=== PATIENT | male | born 1995 | race Caucasian/White ===

== ENCOUNTER 2019-08-12 17:43 | Emergency (ER) | payer SELFPAY ==
[2019-08-12 17:53] VITALS: BP 147/71; PULSE 70; RESP 16; TEMP 37.1; O2SAT 100
--- NOTE | 2019-08-12 18:09 | ED.URI ---
HPI - URI/Sore Throat General Chief Complaint: Upper Respiratory Infection Stated Complaint: URI/SOB Time Seen by Provider: 08/12/19 18:09 Source: patient and RN notes reviewed History of Present Illness HPI Narrative: Patient is a 23-year-old male that presents the urgent care with complaints of nasal congestion, sinus pressure. Patient states the symptoms started 3 days ago with a sore throat and a dry cough which of both since subsided. Patient states he does have a history of asthma. Patient does appear to have anxiety and does admit to past medical history of anxiety. Patient states that he is hypochondriac . Patient states that his job sent him today due to complaints of shortness of breath. Patient denies any shortness of breath at this time and denies any wheezing. Patient has been using Zyrtec and states that he gets typical spring allergies every year. No other acute complaints. No acute distress noted. Patient read the plan of care. Related Data Home Medications Medication Instructions Recorded Confirmed No Home Medications 08/12/19 08/12/19 Allergies Allergy/AdvReac Type Severity Reaction Status Date / Time buspirone Allergy Unknown Seizure Verified 08/12/19 18:05 Review of Systems Review of Systems: Narrative: CONSTITUTIONAL: Denies fever, chills, or sweats. EYES: Denies visual changes, redness, or discharge. ENT: Reports of nasal congestion CARDIOVASCULAR: Denies chest pain, palpitations, or edema. RESPIRATORY: Denies dyspnea or cough currently GASTROINTESTINAL: Denies abdominal pain, nausea, vomiting, or diarrhea. GENITOURINARY: Denies dysuria or hematuria. SKIN: Denies rash or itching. MUSCULOSKELETAL: Denies back pain, joint pain, or myalgia. NEUROLOGIC: Denies headache, numbness, or weakness. PSYCHIATRIC: Reports of history of anxiety All other systems reviewed are negative, except as documented in HPI. PMFSH Social History Social History Gender identity (if verbalized by the patient): Male Comments At the time of my signature, I reviewed and agree with the nursing past medical, surgical, social, and family history. There is no relevant family history pertinent to the patient complaint. Exam Narrative: Exam Narrative: GENERAL: This is a well-nourished, well-developed patient, in no apparent distress. HEAD: normocephalic, atraumatic. EYES: PERRL. Sclera clear/white. Vision is grossly intact. EARS: External ears normal, auditory canals clear and without drainage, TMs normal without perforation. Hearing grossly intact. NOSE: External nose normal with no obvious nasal discharge, nares without redness, no rhinorrhea. THROAT: Mucous membranes moist, mild erythema noted posterior oropharynx with mild postnasal drainage NECK: Neck supple, non-tender without lymphadenopathy CARDIOVASCULAR: Regular rate and rhythm without murmurs, gallops, or rubs. RESPIRATORY: Clear to auscultation. Breath sounds equal bilaterally. No wheezes, rales, or rhonchi. SKIN: warm, intact with no suspicious lesions or rash, good texture and turgor. NEURO: awake, alert, and oriented to person, place and time. There were no obvious focal neurologic abnormalities. EXTREMITIES: No clubbing, cyanosis, or edema. Course Vital Signs Vital signs: Vital Signs Temperature 98.8 F 08/12/19 17:53 Pulse Rate 70 08/12/19 17:53 Respiratory Rate 16 08/12/19 17:53 Blood Pressure 147/71 H 08/12/19 17:53 Pulse Oximetry 100 08/12/19 17:53 Temperature 98.8 F 08/12/19 17:53 Pulse Rate 70 08/12/19 17:53 Respiratory Rate 16 08/12/19 17:53 Blood Pressure 147/71 H 08/12/19 17:53 Pulse Oximetry 100 08/12/19 17:53 Reviewed?patient is informed that they may have pre-hypertension or hypertension based on a blood pressure reading in the department. I recommend the patient call the primary care provider listed on their discharge instructions or a physician of their choice this week to arrange follow-up for further e
== END 2019-08-12 18:22 | disposition home or self-care (01) ==
PROVIDERS: Emergency Provider Nurse Practitioner Family
DX: J31.0 Chronic rhinitis (principal); J32.9 Chronic sinusitis, unspecified; J45.909 Unspecified asthma, uncomplicated
CPT/HCPCS: 99211; G0463

== ENCOUNTER 2019-09-09 05:46 | Emergency (ER) | payer SELFPAY ==
--- NOTE | ~2019-09-09 | XR_ITS ---
EXAMINATION: XR chest 1V portable DATE: 09/09/2019 06:25 INDICATION: Shortness of breath. TECHNIQUE: A single frontal view of the chest was obtained. COMPARISON: Chest single view 04/30/2013 FINDINGS: The chest demonstrates clear lungs without pneumonia, pleural effusion, or pneumothorax. Th e heart size is normal. IMPRESSION: 1. No acute cardiopulmonary disease. Reviewed, dictated and finalized at location A.
[2019-09-09 05:49] VITALS: BP 129/80; PULSE 86; RESP 27; TEMP 36.4; O2SAT 100
--- NOTE | 2019-09-09 06:13 | ED.ASTHMA ---
HPI - Asthma General Chief Complaint: Asthma Stated Complaint: asthma Time Seen by Provider: 09/09/19 06:02 Source: patient Mode of arrival: ambulatory Limitations: no limitations History of Present Illness HPI Narrative: Patient is a 23 yo M who presents to the ED for evaluation of shortness of breath. Patient reports a 3-day history of worsening shortness of breath, worse with exertion, states this is very consistent with his history of asthma. Patient has been written without a physician, was recently seen in urgent care couple weeks ago and diagnosed with sinusitis. He denies any fever, productive cough, does report wheezing. No current access to steroids, patient does have a metered-dose inhaler at home that he has been using with most activities. Patient states his shortness of breath worsened this morning thus he sought care at the emergency department. He reports audible wheezing. He denies chest pain abdominal pain, nausea, vomiting. Related Data Allergies Allergy/AdvReac Type Severity Reaction Status Date / Time buspirone Allergy Unknown Seizure Verified 08/12/19 18:05 Review of Systems Review of Systems: Narrative: CONSTITUTIONAL: Denies fever, chills, or sweats. ENT: Denies rhinorrhea, congestion, sore throat, or otalgia. CARDIOVASCULAR: Denies chest pain, palpitations, or edema. RESPIRATORY: Reports cough and shortness of breath GASTROINTESTINAL: Denies abdominal pain, nausea, vomiting, or diarrhea. GENITOURINARY: Denies dysuria or hematuria. SKIN: Denies rash or itching. MUSCULOSKELETAL: Denies back pain NEUROLOGIC: Denies headache PMFSH Past Medical History Medical History (Updated 09/09/19 @ 07:21 by Melissa Parham MD) Asthma Surgical History Surgical History (Updated 09/09/19 @ 06:20 by Melissa Parham MD) No significant past surgical history Social History Social History (Updated 09/09/19 @ 06:21 by Melissa Parham MD) Smoking status: Current every day smoker Tobacco type: e-cigarettes Alcohol intake: current Drinks per week: 3 Substance use: never Gender identity (if verbalized by the patient): Male Exam Narrative: Exam Narrative: GENERAL: Awake, alert, conversant HEAD: Normocephalic, atraumatic. EYES: PERRLA and EOMI. ENT: Nares clear, no rhinorrhea or epistaxis. Mucous membranes moist. NECK: Supple. CHEST: Moderate respiratory distress, tachypneic, increased work of breathing, no hypoxemia, tachypneic, audible wheezing HEART: Regular rate, sinus rhythm ABDOMEN:Non distended, non tender EXTREMITIES: Normal range of motion. No edema. SKIN: Warm, dry, no rash. NEURO:No focal deficits. Alert and oriented x3 Course Vital Signs Vital signs: Vital Signs Temperature 36.4 C L 09/09/19 05:49 Pulse Rate 86 09/09/19 05:49 Respiratory Rate 27 H 09/09/19 05:49 Blood Pressure 129/80 09/09/19 05:49 Pulse Oximetry 100 09/09/19 05:49 Temperature 36.4 C L 09/09/19 05:49 Pulse Rate 76 09/09/19 07:37 Respiratory Rate 18 09/09/19 07:37 Blood Pressure 118/76 09/09/19 07:37 Pulse Oximetry 99 09/09/19 07:37 MDM - Asthma MDM Narrative Medical decision making narrative: Patient presented for evaluation of shortness of breath with history of asthma. Patient has not had adequate access to his medications due to difficulty finding a primary care provider at time of coronavirus pandemic. At the time of initial assessment, ABCs are intact, vital signs are notable for tachypnea, no tachycardia, no hypoxemia. Laboratory results reassuring. No electrolyte derangement. Chest x-ray without acute cardiopulmonary abnormality. No covered type symptoms with history. Patient was reassessed and improved. I would classify this as a mild to moderate asthma exacerbation. Patient will be discharged home with steroids, inhaler, also given PCP follow-up. He was advised to return should his symptoms recur or worsen. Differential Diagnosis Differential diagnosis:
[2019-09-09] MEDS: MAGNESIUM SULF 2 GM/WATER 50ML 2 GM/50 ML BAG IVPB (06:22)
[2019-09-09] MEDS: SODIUM CHLORIDE 0.9% IV 1,000 ML 999 ML IV CONT (06:22)
[2019-09-09] MEDS: ALBUTEROL SULFATE NEB 2.5 MG/0.5 ML INH 5 MG INHALATION (06:27)
[2019-09-09] MEDS: IPRATROPIUM BR 0.02% INH SOLN 0.5 MG/2.5 ML VIAL 1 MG INHALATION (06:27)
[2019-09-09 06:28] VITALS: PULSE 71; RESP 20
[2019-09-09 06:39] LABS: Basophils Absolute Auto 0.1 K/mm3 (0.0-0.1); Basophils Percent Auto 0.6 % (0.2-1.2); Eosinophils Absolute Auto 0.5 K/mm3 (0-0.3); Eosinophils Percent Auto 5.3 % (0-4.4); Hematocrit 42.8 % (42.0-52.0); Hemoglobin 14.4 g/dL (14.0-18.0); Immature Granulocyte Absolute 0.03 K/mm3 (0.00-0.031); Immature Granulocyte Percent A 0.3 % (0-0.5); Lymphocytes Absolute Auto 3.38 K/mm3 (0.9-3.2); Lymphocytes Percent Auto 38.9 % (18.3-44.2); Mean Corpuscular HGB Conc 33.6 g/dl (32-36); Mean Corpuscular Hemoglobin 29.9 pg (26-34); Mean Platelet Volume 10.2 fl (7.4-10.4); Monocytes Absolute Auto 0.9 K/mm3 (0.1-0.6); Monocytes Percent Auto 9.8 % (2.6-8.5); Neutrophils Absolute Auto 3.9 K/mm3 (1.3-6.7); Neutrophils Percent Auto 45.1 % (45.5-73.1); Platelet Count Result 252 k/mm3 (150-375); Red Blood Count 4.81 M/mm3 (4.6-6.20); Red Cell Distribution Width 12.3 % (11.5-14.5); White Blood Count 8.7 K/mm3 (4.5-10.0)
[2019-09-09 06:53] LABS: Blood Urea Nitrogen 19 mg/dL (9-20); Calcium 8.9 mg/dL (8.4-10.2); Carbon Dioxide 23 mmol/L (22-30); Chloride 109 mmol/L (98-107); Estimated CRCL calculation 97 ml/min; Estimated Glomerular Filt Rate > 60; Glucose 93 mg/dL (75-110); Potassium 4.1 mmol/L (3.4-5.0); Sodium 140 mmol/L (137-145)
[2019-09-09 07:37] VITALS: BP 118/76; PULSE 76; RESP 18; O2SAT 99
--- NOTE | 2019-09-09 07:39 | PC.NURSE ---
Report received from JUANCHO Zuniga.
== END 2019-09-09 07:50 | disposition home or self-care (01) ==
PROVIDERS: Emergency Provider Emergency Medicine
DX: J45.901 Unspecified asthma with (acute) exacerbation (principal); F17.290 Nicotine dependence, other tobacco product, uncomplicated
CPT/HCPCS: 36415; 71045; 80048; 85025; 94640; 96365; 99284; J3475; J7030

== ENCOUNTER 2019-11-28 14:38 | Emergency (ER) | payer SELFPAY ==
--- NOTE | ~2019-11-28 | CT_ITS ---
EXAMINATION: CT brain wo con INDICATION: Transient alteration of awareness COMPARISON: 02/28/2015 TECHNIQUE: Standard unenhanced head CT. The dose-length product (DLP) was 605.33 mGy-cm. The mA was a djusted according to patient size. Iterative reconstruction technique was employed. FINDINGS: There is no intracranial hemorrhage, acute infarction, or abnormal mass lesion. The ventric les are normal. There is no abnormal mass effect or midline shift. The flores-white matter differentiat ion is normal. The basal cisterns are patent. The orbits are normal. The paranasal sinuses, mastoids and calvarium are normal. IMPRESSION: 1. No acute intracranial abnormality. Reviewed, dictated and finalized at location A.
--- NOTE | 2019-11-28 14:44 | ECG_ITS ---
Measurements Intervals [place] Rate: 114 P: 76 PA: 167 QRS: 76 QRSD: 88 T: 26 QT: 300 QTc: 414 Interpretive Statements SINUS TACHYCARDIA MINIMAL Q WAVES- INF/LAT LEADS NONSPECIFIC T-WAVE ABNORMALITY- INFERIOR LEADS ABNORMAL ECG Electronically Signed On 11-28-2019 15:12:04 CDT by Mathew Sinclair D.O.
[2019-11-28 14:45] VITALS: BP 127/74; PULSE 109; RESP 21; TEMP 37.7; O2SAT 96
[2019-11-28 15:01] LABS: Basophils Percent Auto 0.3 % (0.2-1.2); Eosinophils Absolute Auto 0.1 K/mm3 (0-0.3); Eosinophils Percent Auto 0.5 % (0-4.4); Hematocrit 46.3 % (42.0-52.0); Hemoglobin 15.6 g/dL (14.0-18.0); Immature Granulocyte Absolute 0.07 K/mm3 (0.00-0.031); Immature Granulocyte Percent A 0.5 % (0-0.5); Lymphocytes Absolute Auto 3.52 K/mm3 (0.9-3.2); Lymphocytes Percent Auto 27.5 % (18.3-44.2); Mean Corpuscular HGB Conc 33.7 g/dl (32-36); Mean Corpuscular Hemoglobin 30.1 pg (26-34); Mean Corpuscular Volume 89.4 fl (80-100); Mean Platelet Volume 10.1 fl (7.4-10.4); Monocytes Absolute Auto 1.1 K/mm3 (0.1-0.6); Monocytes Percent Auto 8.9 % (2.6-8.5); Neutrophils Percent Auto 62.3 % (45.5-73.1); Platelet Count Result 331 k/mm3 (150-375); Red Blood Count 5.18 M/mm3 (4.6-6.20); Red Cell Distribution Width 12.2 % (11.5-14.5); White Blood Count 12.8 K/mm3 (4.5-10.0)
[2019-11-28 15:28] LABS: Add Urine Microscopic? YES; Appearance Urine Clear (Clear); Bacteria Urine Trace /hpf; Bilirubin Urine Negative (Negative); Blood Urine 2+ (Negative); Color Urine Yellow (Yellow); Glucose Urine UA Negative (Negative); Ketones Urine Trace mg/dL (Negative); Leukocyte Esterase Ur Negative LEU/UL (Negative); Mucus Urine Heavy /lpf; Nitrate Urine Negative (Negative); Protein Urine 2+ mg/dL (Negative); Specific Grav Ur 1.018 (1.001-1.035); Urobilinogen Urine Negative mg/dL (<2.0); WBC Urine 0-3 /hpf
[2019-11-28 15:37] LABS: Alanine Aminotransferase 31 U/L (4-50); Albumin Level 5.3 g/dL (3.5-5.1); Alkaline Phosphatase 46 U/L (38-126); Aspartate Amino Transferase 40 U/L (17-59); Bilirubin,Total 0.8 mg/dL (0.2-1.3); Blood Urea Nitrogen 10 mg/dL (9-20); Carbon Dioxide 13 mmol/L (22-30); Chloride 104 mmol/L (98-107); Estimated CRCL calculation 71 ml/min; Estimated Glomerular Filt Rate > 60; Glucose 101 mg/dL (75-110); Potassium 3.8 mmol/L (3.4-5.0); Sodium 143 mmol/L (137-145)
[2019-11-28 15:42] LABS: Amphetamine Screen Urine Negative (Negative); Barbiturate Screen Urine Negative (Negative); Benzodiazepines Screen Urine Positive (Negative); Cannabinoid Screen Urine Positive (Negative); Cocaine Screen Urine Negative (Negative); Methadone Screen Urine Negative (Negative); Opiate Screen Urine Negative (Negative); Phencyclidine Screen Urine Negative (Negative)
[2019-11-28 15:50] VITALS: BP 106/61; PULSE 79; RESP 17; O2SAT 96
[2019-11-28] MEDS: SODIUM CHLORIDE 0.9% IV 1,000 ML 999 ML IV CONT (15:56)
--- NOTE | 2019-11-28 16:08 | ED.SEIZURE ---
HPI - Seizure General Chief Complaint: Seizure Stated Complaint: SEIZURE Time Seen by Provider: 11/28/19 15:43 Source: patient and family Mode of arrival: EMS Limitations: other (patient does not remember incident) History of Present Illness HPI Narrative: This is a 23-year-old male that presents the emergency department via EMS for seizure-like activity today. Reports he had binged on Xanax last week. Reports he stopped taking it abruptly on Thursday. Reports today he started having a lot of vomiting. Also reports sweating. Reports he remembers feeling a little lightheaded and then next remembers being in the ambulance. Per mother who was at work with him, he was on the floor and had tonic-clonic movements. Reports he was confused following incident. Patient now alert and oriented. Does not have any complaints. Related Data Allergies Allergy/AdvReac Type Severity Reaction Status Date / Time buspirone Allergy Unknown Seizure Verified 09/12/19 12:57 Review of Systems Review of Systems: Narrative: CONSTITUTIONAL: Denies fever EYES: Denies visual changes CARDIOVASCULAR: Denies chest pain RESPIRATORY: Denies dyspnea. GASTROINTESTINAL: Reports nausea, vomiting NEUROLOGIC: Denies headache, numbness, or weakness. All systems reviewed & are unremarkable except as noted in HPI and below PMFSH Past Medical History Medical History (Updated 11/28/19 @ 18:35 by Ene Garcia PA-C) Asthma Surgical History Surgical History (Updated 09/12/19 @ 13:03 by Miryam Strange) No pertinent past surgical history No significant past surgical history Social History Social History Smoking status: Current every day smoker Tobacco type: e-cigarettes/vaping Alcohol intake: current Drinks per week: 3 Substance use: current Substance use type: marijuana Gender identity (if verbalized by the patient): Male Exam Narrative: Exam Narrative: GENERAL: Well-appearing, well-nourished, and in no acute distress. HEAD: Normocephalic, atraumatic. EYES: PERRLA and EOMI. ENT: Nares clear, no rhinorrhea or epistaxis. Mucous membranes moist. Oropharynx without tonsillar hypertrophy exudate or other lesions. Bilateral TMs pearly flores non-bulging NECK: Supple. No adenopathy or masses. CHEST: Clear to auscultation. No respiratory distress. No wheezes rales or rhonchi HEART: Regular rate and rhythm. No murmur heard. Normal peripheral pulses. ABDOMEN: Soft, nontender, nondistended, normal active bowel sounds. EXTREMITIES: Normal range of motion. No edema. Strength equal in bilateral upper and lower extremities (5/5). SKIN: Warm, dry, no rash. NEURO: No focal deficits. Alert and oriented x3. Cranial nerves II through XII grossly intact. Normal [id number] PSYCH: Normal mood and affect Course Vital Signs Vital signs: Vital Signs Temperature 99.8 F H 11/28/19 14:45 Pulse Rate 109 H 11/28/19 14:45 Respiratory Rate 21 H 11/28/19 14:45 Blood Pressure 127/74 11/28/19 14:45 Pulse Oximetry 96 11/28/19 14:45 Temperature 99.8 F H 11/28/19 14:45 Pulse Rate 68 11/28/19 18:15 Respiratory Rate 12 11/28/19 18:15 Blood Pressure 111/64 11/28/19 18:15 Pulse Oximetry 98 11/28/19 18:15 MDM - Seizure MDM Narrative Medical decision making narrative: Patient presents the emergency department after seizure activity at work. Reports he had been binging on Xanax last week. Reports he abruptly stopped on Thursday. This morning he started have a lot of vomiting and then had a seizure at work. Presented via EMS. Patient neurologically intact on arrival. Mildly tachycardic, this improved with IV fluids. CBC with mild leukocytosis to 12.8. Metabolic panel with evidence of possible mild JOHNNA. Patient was hydrated in the ED. UA without evidence of infection. Urine drug screen positive for benzodiazepines and cannabinoids. CT scan of the brain is without acute findings
[2019-11-28 17:16] VITALS: PULSE 75; RESP 19; O2SAT 98
[2019-11-28 18:03] VITALS: PULSE 67
[2019-11-28 18:15] VITALS: BP 111/64; PULSE 68; RESP 12; O2SAT 98
[2019-11-28 18:45] VITALS: BP 110/76; PULSE 75; RESP 21; O2SAT 97
== END 2019-11-28 18:47 | disposition left against medical advice (07) ==
PROVIDERS: Emergency Provider Emergency Medicine; PCP Family Medicine
DX: F13.239 Sedative, hypnotic or anxiolytic dependence with withdrawal, unspecified (principal); R00.0 Tachycardia, unspecified; R94.31 Abnormal electrocardiogram [ECG] [EKG]; F17.290 Nicotine dependence, other tobacco product, uncomplicated
CPT/HCPCS: 36415; 70450; 80053; 80307; 81001; 85025; 93005; 99284; J2060; J7030

== ENCOUNTER 2019-12-05 10:28 | Emergency (ER) | payer SELFPAY ==
[2019-12-05 10:45] VITALS: BP 136/88; PULSE 78; RESP 18; TEMP 36.3; O2SAT 99
--- NOTE | 2019-12-05 11:17 | ED.ANXIETY ---
HPI - Anxiety General Chief Complaint: Anxiety <ESTELA Belle Last Filed: 12/05/19 11:21> Stated Complaint: SEIZURE LAST WEEK, DON'T FEEL RIGHT <ESTELA Belle Last Filed: 12/05/19 11:21> Time Seen by Provider: 12/05/19 10:59 <ESTELA Belle Last Filed: 12/05/19 11:21> Source: patient and old records reviewed <ESTELA Belle Last Filed: 12/05/19 11:21> Mode of arrival: ambulatory <ESTELA Belle Last Filed: 12/05/19 11:21> Limitations: no limitations <ESTELA Belle Last Filed: 12/05/19 11:21> History of Present Illness HPI narrative: Patient is a 23-year-old male who presents to emergency department notes that he had seizure activity 7 days ago after he had been abusing benzodiazepines and what he has been taking for his anxiety patient on arrival to emergency department notes that today while at work he was in a hot environment began to feel agitated and anxious patient notes he has not had any benzo diazepam since Thursday when he took a quarter of a milligram. During the course of the week patient notes he has been taking 1/4 mg 3 times daily to wean himself off. Patient denies any new seizures injury trauma fever chills illness and on arrival presents with normal gait no distress <ESTELA Belle Last Filed: 12/05/19 11:21> Related Data Home Medications: Home Medications Medication Instructions Recorded Confirmed albuterol sulfate INHALATION 12/05/19 budesonide-formoterol [Symbicort] 2 puff INHALATION Q12H 12/05/19 12/05/19 <ESTELA Belle Last Filed: 12/05/19 11:21> Allergies/Adverse Reactions: Allergies Allergy/AdvReac Type Severity Reaction Status Date / Time buspirone Allergy Seizure Verified 12/05/19 10:52 <ESTELA Belle Last Filed: 12/05/19 11:21> Review of Systems Review of Systems: All systems reviewed & are unremarkable except as noted in HPI and below <ESTELA Belle Last Filed: 12/05/19 11:21> [facility] Past Medical History Medical History: Medical History (Updated 12/05/19 @ 11:21 by Bob Franco PA-C) Anxiety Patient denies significant medical history <ESTELA Belle Last Filed: 12/05/19 11:21> Social History Social History: Social History Smoking status: Never smoker Gender identity (if verbalized by the patient): Male <Bob Franco PA-C - Last Filed: 12/05/19 11:21> Exam Narrative: Exam Narrative: GENERAL: Well-appearing, well-nourished, and in no acute distress. HEAD: Normocephalic, atraumatic. EYES: PERRLA and EOMI. ENT: Nares clear, no rhinorrhea or epistaxis. Mucous membranes moist. Oropharynx without tonsillar hypertrophy exudate or other lesions. CHEST: Clear to auscultation. No respiratory distress. No wheezes rales or rhonchi HEART: Regular rate and rhythm. No murmur heard. EXTREMITIES: Normal range of motion. No edema. SKIN: Warm, dry, no rash. NEURO: No focal deficits. Alert and oriented x3. Cranial nerves II through XII grossly intact. Normal speech and gait PSYCH: Normal mood and affect. <Bob Franco PA-C - Last Filed: 12/05/19 11:21> Course Course Emergency Course: Patient in the room in no distress advised to follow with primary care afebrile nontoxic-appearing <Bob Franco PA-C - Last Filed: 12/05/19 11:21> Vital Signs Vital signs: Vital Signs Temperature 97.4 F L 12/05/19 10:45 Pulse Rate 78 12/05/19 10:45 Respiratory Rate 18 12/05/19 10:45 Blood Pressure 136/88 12/05/19 10:45 Pulse Oximetry 99 12/05/19 10:45 Temperature 97.4 F L 12/05/19 10:45 Pulse Rate 78 12/05/19 10:45 Respiratory Rate 18 12/05/19 10:45 Blood Pressure 136/88 12/05/19 10:45 Pulse Oximetry 99 12/05/19 10:45 <Bob Franco PA-C - Last Filed: 12/05/19 11:21> Vital Signs
== END 2019-12-05 12:25 | disposition home or self-care (01) ==
LOC: ANHED 11:24
PROVIDERS: Emergency Provider Emergency Medicine
DX: F41.9 Anxiety disorder, unspecified (principal)
CPT/HCPCS: 99281

== ENCOUNTER 2020-01-29 17:44 | Emergency (ER) | payer SELFPAY ==
--- NOTE | 2020-01-29 17:45 | ED.SEIZURE ---
HPI - Seizure General Chief Complaint: Seizure Stated Complaint: SEIZURE Time Seen by Provider: 01/29/20 17:45 Source: patient and EMS Mode of arrival: EMS Limitations: no limitations History of Present Illness HPI Narrative: Patient is a 24-year-old male with a history of benzodiazepine abuse who presents to the emergency department for evaluation of seizure activity. Patient reportedly had a breakthrough seizure activity this evening while sitting at the kitchen table talking with his girlfriend. Reportedly, patient suddenly lost consciousness had some shaking activity and fell off of his chair. Patient did not strike his head on the floor per girlfriend. Patient had about 1 to 2 minutes of seizure activity for which EMS was called. At the time of EMS arrival, patient was awake, alert and oriented, not reporting any pain. No bowel or bladder incontinence. No tongue biting. Glucose appropriate. Patient has a history of seizure after he stopped Xanax use. Patient states he had a 3-day history of daily Xanax use of up to 6 mg daily. Patient abruptly stopped that about 4 days ago and then had a seizure today. Related Data Home Medications Medication Instructions Recorded Confirmed budesonide-formoterol [Symbicort] 2 puff INHALATION Q12H 01/29/20 Allergies Allergy/AdvReac Type Severity Reaction Status Date / Time buspirone Allergy Unknown Seizure Verified 09/12/19 12:57 cephalexin [From Keflex] Allergy Unknown Verified 01/29/20 17:53 Review of Systems Review of Systems: Narrative: CONSTITUTIONAL: Denies fever EYES: Denies visual changes ENT: Denies rhinorrhea, congestion CARDIOVASCULAR: Denies chest pain RESPIRATORY: Denies cough or dyspnea. GASTROINTESTINAL: Denies abdominal pain, nausea, vomiting GENITOURINARY: Denies dysuria or hematuria. SKIN: Denies rash or itching. MUSCULOSKELETAL: Denies back pain, denies joint pain NEUROLOGIC: Denies headache, numbness, or weakness. [facility] Past Medical History Medical History (Updated 01/29/20 @ 19:33 by Melissa Parham MD) Asthma Xanax use disorder, mild, abuse Surgical History Surgical History (Updated 09/12/19 @ 13:03 by Miryam Strange) No pertinent past surgical history No significant past surgical history Social History Social History Smoking status: Current every day smoker Tobacco type: e-cigarettes/vaping Alcohol intake: current Drinks per week: 3 Substance use: current Substance use type: marijuana Gender identity (if verbalized by the patient): Male Exam Narrative: Exam Narrative: GENERAL: Awake, alert, conversant HEAD: Normocephalic, atraumatic. EYES: PERRLA and EOMI. ENT: Nares clear, no rhinorrhea or epistaxis. Mucous membranes moist. No tongue laceration. NECK: Supple. CHEST: No respiratory distress, breathing even and non labored HEART: Tachycardic rate, sinus rhythm ABDOMEN:Non distended, non tender EXTREMITIES: Normal range of motion. No edema. SKIN: Warm, dry, no rash. NEURO:No focal deficits. Alert and oriented x3 Course Vital Signs Vital signs: Vital Signs Temperature 36.6 C 01/29/20 17:49 Pulse Rate 106 H 01/29/20 17:49 Respiratory Rate 16 01/29/20 17:49 Blood Pressure 143/91 H 01/29/20 17:49 Pulse Oximetry 95 01/29/20 17:49 Temperature 36.6 C 01/29/20 17:49 Pulse Rate 82 01/29/20 18:46 Respiratory Rate 17 01/29/20 18:46 Blood Pressure 101/64 01/29/20 18:46 Pulse Oximetry 95 01/29/20 18:46 MDM - Seizure MDM Narrative Medical decision making narrative: Patient presented for evaluation seizure activity. Patient reportedly on benzodiazepine binge, abruptly stop benzodiazepine use 4 days ago and then reportedly had a witnessed seizure today, witnessed by his girlfriend. Patient remained at baseline throughout his time in the ER without any recurrent seizure activity, no abnormal vital signs, no extreme tachycardia,
--- NOTE | 2020-01-29 17:47 | ECG_ITS ---
Measurements Intervals [place] Rate: 92 P: 77 ME: 166 QRS: 78 QRSD: 88 T: 56 QT: 341 QTc: 423 Interpretive Statements SINUS RHYTHM WITH MARKED SINUS ARRHYTHMIA POSSIBLE LEFT ATRIAL ENLARGEMENT BASELINE ARTIFACT- I, II, III, AVR, AVL, AVF, V4-V6 BORDERLINE ECG Electronically Signed On 01-30-2020 7:09:35 CDT by Mathew Sinclair D.O.
[2020-01-29 17:49] VITALS: BP 143/91; PULSE 106; RESP 16; TEMP 36.6; O2SAT 95
[2020-01-29] MEDS: LORazepam 0.5 MG TABLET PO (17:57)
[2020-01-29 18:09] VITALS: PULSE 110; O2SAT 99
[2020-01-29 18:11] VITALS: O2SAT 99
[2020-01-29 18:13] LABS: Basophils Percent Auto 0.2 % (0.2-1.2); Eosinophils Percent Auto 0.1 % (0-4.4); Hematocrit 44.9 % (42.0-52.0); Hemoglobin 15.8 g/dL (14.0-18.0); Immature Granulocyte Absolute 0.04 K/mm3 (0.00-0.031); Immature Granulocyte Percent A 0.3 % (0-0.5); Lymphocytes Absolute Auto 1.83 K/mm3 (0.9-3.2); Lymphocytes Percent Auto 15.3 % (18.3-44.2); Mean Corpuscular HGB Conc 35.2 g/dl (32-36); Mean Corpuscular Hemoglobin 30.6 pg (26-34); Mean Corpuscular Volume 86.8 fl (80-100); Mean Platelet Volume 10.1 fl (7.4-10.4); Monocytes Absolute Auto 0.6 K/mm3 (0.1-0.6); Monocytes Percent Auto 4.9 % (2.6-8.5); Neutrophils Absolute Auto 9.5 K/mm3 (1.3-6.7); Neutrophils Percent Auto 79.2 % (45.5-73.1); Platelet Count Result 308 k/mm3 (150-375); Red Blood Count 5.17 M/mm3 (4.6-6.20); White Blood Count 11.9 K/mm3 (4.5-10.0)
[2020-01-29 18:27] LABS: Anion Gap 19 mmol/L (8-16); Blood Urea Nitrogen 12 mg/dL (9-20); Calcium 9.7 mg/dL (8.4-10.2); Carbon Dioxide 15 mmol/L (22-30); Chloride 103 mmol/L (98-107); Estimated Glomerular Filt Rate > 60; Glucose 115 mg/dL (75-110); Potassium 4.1 mmol/L (3.4-5.0); Sodium 137 mmol/L (137-145)
[2020-01-29 18:46] VITALS: BP 101/64; PULSE 82; RESP 17; O2SAT 95
[2020-01-29 18:59] LABS: Add Urine Microscopic? YES; Appearance Urine Clear (Clear); Bacteria Urine Trace /hpf; Bilirubin Urine Negative (Negative); Blood Urine 2+ (Negative); Color Urine Yellow (Yellow); Glucose Urine UA Negative (Negative); Ketones Urine Negative (Negative); Leukocyte Esterase Ur Negative LEU/UL (Negative); Mucus Urine Few /lpf; Nitrate Urine Negative (Negative); Protein Urine 2+ mg/dL (Negative); Specific Grav Ur 1.017 (1.001-1.035); Urobilinogen Urine Negative mg/dL (<2.0); WBC Urine 0-3 /hpf
--- NOTE | 2020-01-29 19:20 | PC.NURSE ---
Report received from JUANCHO Rebolledo. Assumed care of patient at this time.
--- NOTE | 2020-01-29 19:35 | PC.NURSE ---
Patient stated he is leaving and does not want to be admitted. Patient informed of risks of leaving as well as the benefits of staying. Patient informed by this nurse and ERP Dr. Parham. Patient signed AMA paperwork. Patient has his SO with him.
[2020-01-29 19:41] LABS: Amphetamine Screen Urine Negative (Negative); Barbiturate Screen Urine Negative (Negative); Benzodiazepines Screen Urine Positive (Negative); Cannabinoid Screen Urine Positive (Negative); Cocaine Screen Urine Negative (Negative); Methadone Screen Urine Negative (Negative); Opiate Screen Urine Negative (Negative); Phencyclidine Screen Urine Negative (Negative)
[2020-01-29 19:45] VITALS: BP 107/82; PULSE 57; RESP 20; O2SAT 95
== END 2020-01-29 19:45 | disposition left against medical advice (07) ==
PROVIDERS: Emergency Provider Emergency Medicine
DX: J45.909 Unspecified asthma, uncomplicated (principal); F17.290 Nicotine dependence, other tobacco product, uncomplicated; F13.10 Sedative, hypnotic or anxiolytic abuse, uncomplicated; R56.9 Unspecified convulsions; R94.31 Abnormal electrocardiogram [ECG] [EKG]
CPT/HCPCS: 36415; 80048; 80307; 81001; 85025; 93005; 99283; A9270

== ENCOUNTER 2020-05-10 09:51 | Emergency (ER) | payer SELFPAY ==
[2020-05-10 09:59] VITALS: BP 137/68; PULSE 56; RESP 16; TEMP 36.4; O2SAT 99
[2020-05-10 10:03] VITALS: BP 137/68; PULSE 56; RESP 16; TEMP 36.4; O2SAT 99
--- NOTE | 2020-05-10 10:46 | ED.WOUNDLAC ---
HPI - Wound/Laceration General Chief Complaint: Wound/Laceration Stated Complaint: non healing wound Source: patient and RN notes reviewed Mode of arrival: ambulatory History of Present Illness HPI narrative: This is a 24-year-old male that presented to the urgent care with a blister to his right outer hip. According to patient he has had what he calls a abscess/ingrown hair blister approximately 3 times. Patient notes that in the past he burst the blisters in cleaned with peroxide his and or alcohol and applied Neosporin. He decided to come to the urgent care today because abscess continues to come back. He does have pain to that site and notes that in the past when he burst it his pain was relieved. Today an I&D was completed on the site, drainage from the site appeared to be filled with pus patient was given antibiotics and instructions to clean the site. The patient denies SOB, CP, palpitation, extremity numbness, lightheadedness, dizziness, constipation, diarrhea, chills, or fever. Related Data Home Medications Medication Instructions Recorded Confirmed budesonide-formoterol [Symbicort] 2 puff INHALATION Q12H 12/05/19 05/10/20 Allergies Allergy/AdvReac Type Severity Reaction Status Date / Time cephalexin [From Keflex] Allergy Intermediate Hives Verified 05/10/20 10:02 buspirone Allergy Unknown Seizure Verified 03/05/20 09:31 Review of Systems Review of Systems: All systems reviewed & are unremarkable except as noted in HPI and below (10 point system review) PMFSH Past Medical History Medical History Anxiety Asthma Patient denies significant medical history Xanax use disorder, mild, abuse Surgical History Surgical History No pertinent past surgical history No significant past surgical history Social History Social History Smoking status: Never smoker Tobacco type: e-cigarettes/vaping Alcohol intake: current Drinks per week: 3 Substance use: current Substance use type: marijuana Gender identity (if verbalized by the patient): Male Exam Narrative: Exam Narrative: GENERAL: This is a well-nourished, well-developed patient, in no apparent distress. HEAD: normocephalic, atraumatic. EYES: PERRL. Sclera clear/white. Vision is grossly intact. EARS: External ears normal, auditory canals clear and without drainage, TMs normal without perforation. Hearing grossly intact. NOSE: External nose normal with no obvious nasal discharge, nares without redness, no rhinorrhea. THROAT: Mucous membranes moist, posterior pharynx clear. NECK: Neck supple, non-tender without lymphadenopathy, masses or thyromegaly. CARDIOVASCULAR: Regular rate and rhythm without murmurs, gallops, or rubs. RESPIRATORY: Clear to auscultation. Breath sounds equal bilaterally. No wheezes, rales, or rhonchi. GASTROINTESTINAL: Abdomen soft, non-tender, nondistended. Bowel sounds are active. No hepato-splenomegaly, or palpable masses. No guarding. SKIN: Abscess on his right outer hip approximately0.5 1 m in size. Drainage pus fielded. NEURO: awake, alert, and oriented to person, place and time. There were no obvious focal neurologic abnormalities. Steady gait EXTREMITIES: Normal range of motion. No edema. No calf tenderness. Negative Homans sign bilaterally. BACK: Nontender without deformity or crepitance. No flank tenderness. Course Course Emergency Course: I&D completed, patient discharged with antibiotics Clindamycin x7 days, instruction for wound care Vital Signs Vital signs: Vital Signs Temperature 97.5 F L 05/10/20 09:59 Pulse Rate 56 L 05/10/20 09:59 Respiratory Rate 16 05/10/20 09:59 Blood Pressure 137/68 05/10/20 09:59 Pulse Oximetry 99 05/10/20 09:59 Temperature 97.5 F L 05/10/20 10:03 Pulse Rate 56 L 05/10/20 10:03 Respiratory Rate
== END 2020-05-10 10:47 | disposition home or self-care (01) ==
PROVIDERS: Emergency Provider Nurse Practitioner
DX: L02.415 Cutaneous abscess of right lower limb (principal); F17.200 Nicotine dependence, unspecified, uncomplicated; F41.9 Anxiety disorder, unspecified; J45.909 Unspecified asthma, uncomplicated
CPT/HCPCS: 10060; 87070; 87075; 87077; 87186; 87205; 99213; G0463

== ENCOUNTER 2020-07-25 23:01 | Emergency (ER) | payer SELFPAY ==
--- NOTE | ~2020-07-25 | XR_ITS ---
EXAMINATION: XR chest 2V DATE: 07/25/2020 23:25 INDICATION: Asthma. Cough. Shortness of breath. TECHNIQUE: Frontal and lateral views of the chest were obtained. COMPARISON: Chest single view 09/09/19 FINDINGS: The chest demonstrates clear lungs without pneumonia, pleural effusion, or pneumothorax. Th e heart size is normal. IMPRESSION: 1. No acute cardiopulmonary disease. Reviewed, dictated and finalized at location A. AISER TIMBER
[2020-07-25 23:05] VITALS: BP 141/85; PULSE 81; RESP 22; TEMP 36.9; O2SAT 98
--- NOTE | 2020-07-26 00:59 | ED.SOB ---
HPI - SOB/Dyspnea General Chief Complaint: Shortness of Breath/Dyspnea Stated Complaint: asthma, shortness of breath Time Seen by Provider: 07/26/20 00:36 Source: patient Mode of arrival: ambulatory Limitations: no limitations History of Present Illness HPI Narrative: Patient is 24 years old white male presents with increased shortness of breath over the last 3 to 4 hours. Rescue inhaler does not work. Patient denies any fever, chills, nausea, vomiting, chest pain. Patient also on Symbicort. Related Data Home Medications Medication Instructions Recorded Confirmed budesonide-formoterol [Symbicort] 2 puff INHALATION Q12H 12/05/19 05/10/20 Allergies Allergy/AdvReac Type Severity Reaction Status Date / Time cephalexin [From Keflex] Allergy Intermediate Hives Verified 05/10/20 10:02 buspirone Allergy Unknown Seizure Verified 03/05/20 09:31 Review of Systems Review of Systems: Narrative: CONSTITUTIONAL: Denies fever, chills, or sweats. EYES: Denies visual changes, redness, or discharge. ENT: Denies rhinorrhea, congestion, sore throat, or otalgia. CARDIOVASCULAR: Denies chest pain, palpitations, or edema. RESPIRATORY: Denies cough or dyspnea. GASTROINTESTINAL: Denies abdominal pain, nausea, vomiting, or diarrhea. GENITOURINARY: Denies dysuria or hematuria. SKIN: Denies rash or itching. MUSCULOSKELETAL: Denies back pain, joint pain, or myalgia. NEUROLOGIC: Denies headache, numbness, or weakness. PSYCHIATRIC: Denies anxiety or depression. PMFSH Past Medical History Medical History Anxiety Asthma Patient denies significant medical history Xanax use disorder, mild, abuse Surgical History Surgical History No pertinent past surgical history No significant past surgical history Social History Social History Smoking status: Never smoker Tobacco type: e-cigarettes/vaping Alcohol intake: current Drinks per week: 3 Substance use: current Substance use type: marijuana Gender identity (if verbalized by the patient): Male Exam Narrative: Exam Narrative: General appearance: Well-developed, well-nourished Skin: Normal color Head: Normocephalic, nontraumatic Eyes: Clear conjunctiva ENT: Oropharynx normal, ears normal, nose normal Neck: Supple, nontender Chest and respiratory: Airway patent, no respiratory distress, no accessory muscle use, few scattered wheezing bilaterally Heart: Regular rate/rhythm Abdomen: Soft, nontender, no organomegaly, quiet bowel sounds Vascular: Normal peripheral pulses, normal capillary refill. Musculoskeletal: Normal range of motion, nontender back Neurologic: Alert and oriented ?3, LEAD MECHANICAL ENGINEER is normal as tested, no gross motor deficit Course Course Emergency Course: Improving Vital Signs Vital signs: Vital Signs Temperature 36.9 C 07/25/20 23:05 Pulse Rate 81 07/25/20 23:05 Respiratory Rate 22 H 07/25/20 23:05 Blood Pressure 141/85 H 07/25/20 23:05 Pulse Oximetry 98 07/25/20 23:05 Temperature 36.9 C 07/25/20 23:05 Pulse Rate 81 07/25/20 23:05 Respiratory Rate 22 H 07/25/20 23:05 Blood Pressure 141/85 H 07/25/20 23:05 Pulse Oximetry 98 07/25/20 23:05 MDM - SOB/Dyspnea MDM Narrative Medical decision making narrative: Patient presents with asthma exacerbation. Albuterol nebulizer treatment and prednisone orally started. Further plan to follow Critical Care Time Critical Care Time Critical Care Time: Yes Total Critical Care Time: 3 Discharge Plan Discharge Clinical Impression: Asthma exacerbation Qualifie
[2020-07-26] MEDS: ALBUTEROL SULFATE NEB 2.5 MG/3 ML INH 1.25 MG INHALATION (01:02)
[2020-07-26 01:03] VITALS: PULSE 81; RESP 20
[2020-07-26] MEDS: predniSONE 20 MG TABLET 60 MG PO (01:17)
[2020-07-26 02:06] VITALS: BP 122/81; PULSE 102; RESP 20; O2SAT 98
[2020-07-26 02:51] VITALS: BP 128/73; PULSE 96; RESP 20; TEMP 36.9; O2SAT 99
== END 2020-07-26 02:52 | disposition home or self-care (01) ==
PROVIDERS: Emergency Provider Emergency Medicine
DX: J45.901 Unspecified asthma with (acute) exacerbation (principal); F41.9 Anxiety disorder, unspecified
CPT/HCPCS: 71046; 94640; 99283; J7512

== ENCOUNTER 2022-05-11 01:06 | Emergency (ER) | payer OTHER, SELFPAY ==
[2022-05-11] VITALS (8 sets, daily range): BP systolic 127–135; BP diastolic 79–97; PULSE 118–128; RESP 18–26; TEMP 37.1–38.1; O2SAT 98–100
--- NOTE | ~2022-05-11 | CT_ITS ---
EXAMINATION: CTA chest PE protocol DATE: 05/11/2022 04:38 INDICATION: Shortness of breath. TECHNIQUE: Computed tomography angiography (CTA) of the chest was performed with 100 mL Omnipaque-350 intravenous contrast timed to evaluate the pulmonary arteries. Coronal maximum intensity projection 3D-reconstructions were created by the technologist. Automated exposure control and iterative reconst ruction technique were employed. The dose-length product was 360.91 mGy-cm. COMPARISON: Chest 2 views 05/11/2022 FINDINGS: There is no pneumonia or pleural effusion. The heart size is normal. No pericardial effusio n. There is no pulmonary embolus. There is mild chronic height loss of T5 vertebral body. IMPRESSION: 1. No pulmonary embolus. Reviewed, dictated and finalized at location A. CTOR OF STUDENT AID IMPRESSION: 1. No pulmonary embolus.
--- NOTE | ~2022-05-11 | XR_ITS ---
EXAMINATION: XR chest 2V DATE: 05/11/2022 03:58 INDICATION: Dyspnea. TECHNIQUE: Frontal and lateral views of the chest were obtained. COMPARISON: Chest 2 views 07/25/2020 FINDINGS: The chest demonstrates clear lungs without pneumonia, pleural effusion, or pneumothorax. Th e heart size is normal. IMPRESSION: 1. No acute cardiopulmonary disease. Reviewed, dictated and finalized at location A. E FITTER
[2022-05-11] MEDS: ALBUTEROL SULFATE NEB 2.5 MG/3 ML INH 5 MG INHALATION (03:15)
[2022-05-11] MEDS: IPRATROPIUM BR 0.02% INH SOLN 0.5 MG/2.5 ML VIAL INHALATION (03:15)
[2022-05-11] MEDS: ONDANSETRON INJ 4 MG/2 ML VIAL IV PUSH (03:23)
[2022-05-11] MEDS: SODIUM CHLORIDE 0.9% IV 1,000 ML 999 ML IV CONT ×2 (03:23→05:29)
[2022-05-11 03:28] LABS: Basophils Absolute Auto 0.1 K/mm3 (0.0-0.1); Basophils Percent Auto 0.4 % (0.2-1.2); Eosinophils Absolute Auto 0.3 K/mm3 (0-0.3); Eosinophils Percent Auto 1.9 % (0-4.4); Hematocrit 42.9 % (42.0-52.0); Hemoglobin 15.5 g/dL (14.0-18.0); Immature Granulocyte Absolute 0.07 K/mm3 (0.00-0.031); Immature Granulocyte Percent A 0.5 % (0-0.5); Lymphocytes Absolute Auto 0.83 K/mm3 (0.9-3.2); Lymphocytes Percent Auto 6.2 % (18.3-44.2); Mean Corpuscular HGB Conc 36.1 g/dl (32-36); Mean Corpuscular Hemoglobin 31.1 pg (26-34); Mean Platelet Volume 9.7 fl (7.4-10.4); Monocytes Absolute Auto 0.8 K/mm3 (0.1-0.6); Neutrophils Absolute Auto 11.4 K/mm3 (1.3-6.7); Platelet Count Result 289 k/mm3 (150-375); Red Blood Count 4.99 M/mm3 (4.6-6.20); Red Cell Distribution Width 12.2 % (11.5-14.5); White Blood Count 13.5 K/mm3 (4.5-10.0)
[2022-05-11] MEDS: LORazepam INJ (*CRX) 2 MG/ML VIAL 0.5 MG IV PUSH (03:30)
[2022-05-11 03:43] LABS: Alanine Aminotransferase 54 U/L (6-50); Albumin Level 5.1 g/dL (3.5-5.1); Alkaline Phosphatase 60 U/L (38-126); Anion Gap 10 mmol/L (8-16); Aspartate Amino Transferase 47 U/L (17-59); Bilirubin,Total 0.8 mg/dL (0.2-1.3); Blood Urea Nitrogen 16 mg/dL (9-20); Calcium 9.4 mg/dL (8.4-10.2); Carbon Dioxide 24 mmol/L (22-30); Chloride 105 mmol/L (98-107); Estimated CRCL calculation 95 ml/min; Estimated Glomerular Filt Rate > 60; Glucose 120 mg/dL (65-110); Lipase 47 U/L (23-300); Potassium 3.8 mmol/L (3.4-5.0); Sodium 139 mmol/L (137-145)
[2022-05-11 04:03] LABS: Influenza A QL RT-PCR Negative (Negative); Influenza B QL RT-PCR Negative (Negative); SARS-CoV-2 RNA PCR Positive
--- NOTE | 2022-05-11 06:06 | ED.GENADULT ---
HPI - General Adult General Chief complaint: Asthma Stated complaint: SOB, hx asthma Time Seen by Provider: 05/11/22 02:47 History of Present Illness HPI narrative: Patient is a 26-year-old male who presents ER with shortness of breath. Ongoing for the last 7 days. Reports he has been out of his Symbicort and is using his albuterol daily. Began feeling hot and flushed while waiting in the ER. He has been having cough but no runny nose or sore throat. No known sick contacts. No chest pain or chest pressure. He is feeling nauseated and began vomiting while in the ER as well. No diarrhea. Patient reports he is very anxious which does happen to him. Patient notes he is more short of breath in the middle the night. He is recently quit smoking marijuana and switch to Gummies due to concerns about his breathing. Related Data Home Medications Medication Instructions Recorded Confirmed budesonide-formoterol HFA 80 2 puff inhalation Q12H 12/05/19 05/10/20 mcg-4.5 mcg/actuation aerosol inhaler (Symbicort) Allergies Allergy/AdvReac Type Severity Reaction Status Date / Time cephalexin [From Keflex] Allergy Intermediate Hives Verified 05/10/20 10:02 buspirone Allergy Unknown Seizure Verified 03/05/20 09:31 Review of Systems Review of Systems: All systems reviewed & are unremarkable except as noted in HPI and below Constitutional: Constitutional: Denies chills, Denies fatigue and Reports fever(s) ENT: Denies nasal congestion and Denies sore throat Cardiovascular: Cardiovascular: Denies chest pain, Reports rapid heart rate and Denies radiating jaw, neck or arm pain Respiratory: Respiratory: Reports cough, Reports dyspnea and Reports wheezing Gastrointestinal: Gastrointestinal: Denies abdominal pain, Denies nausea and Denies vomiting PMFSH Past Medical History Medical History Anxiety Asthma Patient denies significant medical history Xanax use disorder, mild, abuse Surgical History Surgical History No pertinent past surgical history No significant past surgical history Social History Social History Smoking status: Never smoker Tobacco type: e-cigarettes/vaping Alcohol intake: current Drinks per week: 3 Alcohol use details: consumes 3 beers rarely Substance use: current Substance use type: marijuana Gender identity (if verbalized by the patient): Male Exam Narrative: GENERAL: Uncomfortable-appearing, well-nourished, and vomiting. HEAD: Normocephalic, atraumatic. EYES: PERRL and EOMI. NECK: Supple. CHEST: Very faint basilar wheezing with good air movement throughout lungs. No respiratory distress. HEART: Tachycardic and regular. Normal peripheral pulses. ABDOMEN: Soft, nontender, nondistended. EXTREMITIES: Normal range of motion. No edema. SKIN: Warm, dry, no rash. NEURO: Alert and oriented x3. PSYCH: Normal mood and affect. Course Course Emergency Course: Patient reports breathing normalized after nebulizer treatment and he feels much better. Patient persistently tachycardic likely related to combination of fever, anxiousness and infection. He received 2 L IV fluid. PE study negative. Patient's symptoms ongoing for 1 week that seems to contraindicate him from receiving antiviral medication. Vital Signs Vital signs: Vital Signs Temperature 98.9 F 05/11/22 01:16 Pulse Rate 120 H 05/11/22 01:16 Respiratory Rate 24 H 05/11/22 01:16 Blood Pressure 135/86 05/11/22 01:16 Pulse Oximetry 100 05/11/22 01:16 Oxygen Delivery Room Air 05/11/22 01:16 Temperature 100.5 F H 05/11/22 05:34 Pulse Rate 128 H 05/11/22 03:46 Respiratory Rate 18 05/11/22 03:46 Blood Pressure 129/97 H 05/11/22 02:34 Pulse Oximetry 98 05/11/22 05:25 Oxygen Delivery Room Air 05/11/22 05:27 Medical Decision Making Vit
== END 2022-05-11 07:01 | disposition home or self-care (01) ==
PROVIDERS: Emergency Provider Emergency Medicine
DX: U07.1 COVID-19 (principal); J45.909 Unspecified asthma, uncomplicated
CPT/HCPCS: 36415; 71046; 71275; 80053; 83690; 85025; 87636; 94640; 96361; 96365; 96375; 99284; J0131; J2060; J2405; J7030; Q9967

== ENCOUNTER 2023-01-20 05:11 | Emergency (ER) | payer SELFPAY ==
--- NOTE | ~2023-01-20 | XR_ITS ---
EXAMINATION: XR chest 1V portable INDICATION: Hemoptysis TECHNIQUE: Portable AP chest at 0759 hours COMPARISON: 05/11/2022 FINDINGS: The lungs are free of acute opacities. No pleural effusion or pneumothorax. The cardiomedia stinal silhouette is normal. IMPRESSION: 1. No acute cardiopulmonary abnormality. Reviewed, dictated and finalized at location A.
[2023-01-20 05:14] VITALS: BP 154/97; PULSE 94; RESP 16; TEMP 36.4; O2SAT 100
[2023-01-20 05:59] VITALS: RESP 14
[2023-01-20 06:05] VITALS: BP 116/71; PULSE 92; RESP 14; O2SAT 98
--- NOTE | 2023-01-20 07:15 | PC.NURSE ---
Assumed care of pt from JUANCHO Colunga at this time. Pt resting comfortably in bed waiting to be seen by provider. No requests at this time.
--- NOTE | 2023-01-20 07:28 | ED.GENADULT ---
HPI - General Adult General Chief complaint: Unspecified Stated complaint: coughing up blood Time Seen by Provider: 01/20/23 07:27 Source: patient Mode of arrival: ambulatory Limitations: no limitations History of Present Illness HPI narrative: 27 years old white male drove himself to the hospital because of cough and fresh red blood mainly in the morning after waking up for the last few days. Patient report sometimes streaks of blood sometime 5 mL of fresh blood. Last cough and blood was yesterday morning, this morning woke up with blood taste in the mouth. Patient reported that left nostril is a little bit raw and uncomfortable. History of asthma, ran out of albuterol and Symbicort. He reports upper respiratory viral infection over 3 weeks ago, subsequently have lingering dry cough. He does not smoke or drink, uses marijuana occasionally. Related Data Home Medications Medication Instructions Recorded Confirmed budesonide-formoterol HFA 80 2 puff inhalation Q12H 12/05/19 05/10/20 mcg-4.5 mcg/actuation aerosol inhaler (Symbicort) Allergies Allergy/AdvReac Type Severity Reaction Status Date / Time cephalexin [From Keflex] Allergy Intermediate Hives Verified 01/20/23 06:06 buspirone Allergy Unknown Seizure Verified 01/20/23 06:06 Review of Systems Review of Systems: All systems reviewed & are unremarkable except as noted in HPI and below PMFSH Past Medical History Medical History Anxiety Asthma Patient denies significant medical history Xanax use disorder, mild, abuse Surgical History Surgical History No pertinent past surgical history No significant past surgical history Social History Social History Smoking status: Never smoker Tobacco type: e-cigarettes/vaping Alcohol intake: current Drinks per week: 3 Alcohol use details: consumes 3 beers rarely Substance use: current Substance use type: marijuana Gender identity (if verbalized by the patient): Male Exam Narrative: General appearance: Well-developed, well-nourished Skin: Normal color Head: Normocephalic, nontraumatic Eyes: Clear conjunctiva ENT: Oropharynx normal, ears normal, nose normal Neck: Supple, nontender Chest and respiratory: Airway patent, no respiratory distress, no accessory muscle use Heart: Regular rate/rhythm Abdomen: Soft, nontender, no organomegaly, quiet bowel sounds Vascular: Normal peripheral pulses, normal capillary refill. 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 Patient did not have any coughing or any bloody sputum since arrival to the ED until the time of discharge Reevaluation(s) Reevaluation #1: No new changes compared to on arrival to the ED. Patient did not have any coughing up blood since arrival to the ED until the time of discharge. Date: 01/20/23 Time: 09:30 Vital Signs Vital signs: Vital Signs Temperature 36.4 C L 01/20/23 05:14 Pulse Rate 94 01/20/23 05:14 Respiratory Rate 16 01/20/23 05:14 Blood Pressure 154/97 H 01/20/23 05:14 Pulse Oximetry 100 01/20/23 05:14 Oxygen Delivery Room Air 01/20/23 05:14 Temperature 36.4 C L 01/20/23 05:14 Pulse Rate 76 01/20/23 08:01 Respiratory Rate 14 01/20/23 08:01 Blood Pressure 131/89 01/20/23 08:01 Pulse Oximetry 100 01/20/23 08:01 Oxygen Delivery Room Air 01/20/23 05:14 Medical
--- NOTE | 2023-01-20 07:30 | ECG_ITS ---
Measurements Intervals [place] Rate: 66 P: 46 ME: 159 QRS: 59 QRSD: 95 T: 29 QT: 372 QTc: 391 Interpretive Statements SINUS RHYTHM COMPARED TO ECG 01/29/2020 17:47:11 NO SIGNIFICANT CHANGES Electronically Signed On 01-20-2023 11:22:16 CDT by Conchis Mcginnis M.D.
[2023-01-20 07:55] LABS: Basophils Absolute Auto 0.1 K/mm3 (0.0-0.1); Basophils Percent Auto 0.9 % (0.2-1.2); Eosinophils Absolute Auto 0.2 K/mm3 (0-0.3); Eosinophils Percent Auto 1.9 % (0-4.4); Hematocrit 47.8 % (42.0-52.0); Immature Granulocyte Absolute 0.02 K/mm3 (0.00-0.031); Immature Granulocyte Percent A 0.3 % (0-0.5); Lymphocytes Absolute Auto 3.29 K/mm3 (0.9-3.2); Lymphocytes Percent Auto 41.4 % (18.3-44.2); Mean Corpuscular HGB Conc 33.5 g/dl (32-36); Mean Corpuscular Volume 89.5 fl (80-100); Mean Platelet Volume 9.3 fl (7.4-10.4); Monocytes Absolute Auto 0.7 K/mm3 (0.1-0.6); Monocytes Percent Auto 8.6 % (2.6-8.5); Neutrophils Absolute Auto 3.7 K/mm3 (1.3-6.7); Neutrophils Percent Auto 46.9 % (45.5-73.1); Platelet Count Result 297 k/mm3 (150-375); Red Blood Count 5.34 M/mm3 (4.6-6.20); Red Cell Distribution Width 13.3 % (11.5-14.5)
[2023-01-20 08:01] VITALS: BP 131/89; PULSE 76; RESP 14; O2SAT 100
[2023-01-20 08:04] LABS: INR 0.9; Prothrombin Time 12.8 Seconds (11.1-14.7)
[2023-01-20 08:05] LABS: Partial Thromboplastin Time 28.3 SECONDS (22.3-36.8)
[2023-01-20 08:07] LABS: Alanine Aminotransferase 87 U/L (6-50); Albumin Level 5.3 g/dL (3.5-5.1); Alkaline Phosphatase 85 U/L (38-126); Anion Gap 11 mmol/L (8-16); Aspartate Amino Transferase 48 U/L (17-59); Bilirubin,Total 0.8 mg/dL (0.2-1.3); Blood Urea Nitrogen 13 mg/dL (9-20); Calcium 9.7 mg/dL (8.4-10.2); Carbon Dioxide 25 mmol/L (22-30); Chloride 104 mmol/L (98-107); Estimated CRCL calculation 97 ml/min; Estimated Glomerular Filt Rate > 60; Glucose 99 mg/dL (65-110); Potassium 4.1 mmol/L (3.4-5.0); Sodium 140 mmol/L (137-145)
[2023-01-20 08:15] LABS: NT Pro B Type Natriuretic Pept < 20 pg/mL (19.9-100)
[2023-01-20 08:21] LABS: D Dimer 0.33 ug/mL (<0.48)
[2023-01-20 09:28] VITALS: BP 121/85; PULSE 78; RESP 16; O2SAT 100
== END 2023-01-20 09:46 | disposition home or self-care (01) ==
PROVIDERS: Emergency Provider Emergency Medicine
DX: J45.909 Unspecified asthma, uncomplicated (principal)
CPT/HCPCS: 36415; 71045; 80053; 83880; 85025; 85380; 85610; 85730; 93005; 99283

== ENCOUNTER 2024-01-24 02:32 | Emergency (ER) | payer SELFPAY ==
[2024-01-24] VITALS (10 sets, daily range): BP systolic 118–137; BP diastolic 55–80; PULSE 60–80; RESP 16–24; TEMP 36.4–36.6; O2SAT 92–100
--- NOTE | ~2024-01-24 | XR_ITS ---
EXAMINATION: XR chest 1V portable DATE: 01/24/2024 06:13 INDICATION: Asthma. Shortness of breath. TECHNIQUE: A single frontal view of the chest was obtained. COMPARISON: Chest view 01/20/23 FINDINGS: There is no pneumonia, pleural effusion, or pneumothorax. The heart size is normal. IMPRESSION: 1. No acute cardiopulmonary disease. Reviewed, dictated and finalized at location A.
--- NOTE | 2024-01-24 03:19 | PC.NURSE ---
Patient noted to be coughing in waiting room. Patient pulled back into triage for repeat BPM and O2 sat. 67bpm and 96% on RA.
--- NOTE | 2024-01-24 05:34 | PC.NURSE ---
Patient cough has increased in frequency, repeat VS taken. Patient now has louder wheezes. assembler tractor notified and patient taken to room.
[2024-01-24] MEDS: IPRATROPIUM 0.5 MG/ALBUTEROL SULFATE 2.5 MG AMPUL.NEB 3 ML INHALATION (05:57)
--- NOTE | 2024-01-24 06:18 | ED.ASTHMA ---
HPI - Asthma General Chief Complaint: Asthma Stated Complaint: Asthma Time Seen by Provider: 01/24/24 06:12 Source: patient Mode of arrival: ambulatory Limitations: no limitations History of Present Illness HPI Narrative: Patient presents with concern for asthma exacerbation. Started having difficulty breathing at 1am. Associated with cough. He has been out of his inhalers (albuterol PRN and Symbicort QHS) for approximately 1 week. Asthma otherwise well controlled on this regimen. No prior inbutation or use of BIPAP. He doesn't smoke cigarettes but does smoke marijuana. Has been trying to cut back on this though and has done so by swtiching to edibles. Related Data Home Medications Medication Instructions Recorded Confirmed budesonide-formoterol HFA 80 2 puff inhalation Q12H 12/05/19 05/10/20 mcg-4.5 mcg/actuation aerosol inhaler (Symbicort) Allergies Allergy/AdvReac Type Severity Reaction Status Date / Time cephalexin [From Keflex] Allergy Intermediate Hives Verified 01/20/23 06:06 buspirone Allergy Unknown Seizure Verified 01/20/23 06:06 PMFSH Past Medical History Medical History Anxiety Asthma Patient denies significant medical history Xanax use disorder, mild, abuse Surgical History Surgical History No pertinent past surgical history No significant past surgical history Social History Social History (Updated 01/25/24 @ 08:42 by Domenica Gonzales MD) Smoking status: Never smoker Tobacco type: e-cigarettes/vaping Alcohol intake: current Drinks per week: 3 Alcohol use details: consumes 3 beers rarely Substance use: current Substance use type: marijuana Other substance usage details: reducing smoking, continues edibles Gender identity (if verbalized by the patient): Male Exam Narrative: GENERAL: Well-appearing, well-nourished, and in no acute distress. HEAD: Normocephalic, atraumatic. EYES: Non injected, non icteric ENT: Nares clear, no rhinorrhea or epistaxis. NECK: Supple. CHEST: Speaking in full sentences. Tight on auscultation but with bilateral wheezes. HEART: Regular rate and rhythm. . ABDOMEN: Soft, nondistended. EXTREMITIES: Normal range of motion. No lower extremity edema. SKIN: Warm, dry, no rash. NEURO: No focal deficits. Alert and oriented x3. PSYCH: Normal mood and affect. Course Vital Signs Vital signs: Vital Signs Temperature 97.5 F L 01/24/24 02:36 Pulse Rate 60 01/24/24 02:36 Respiratory Rate 22 H 01/24/24 02:36 Blood Pressure 130/60 01/24/24 02:36 Pulse Oximetry 98 01/24/24 02:36 Oxygen Delivery Room Air 01/24/24 02:36 Temperature 97.8 F 01/24/24 07:29 Pulse Rate 70 01/24/24 07:29 Respiratory Rate 18 01/24/24 07:29 Blood Pressure 137/80 01/24/24 07:29 Pulse Oximetry 100 01/24/24 07:29 Oxygen Delivery Room Air 01/24/24 06:24 Fraction of Inspired Oxygen 21 01/24/24 06:24 MDM - Asthma MDM Narrative Medical decision making narrative: Patient presents with concern for shortness of breath. In the emergency department he is afebrile with vital signs notable for tachypnea. It does appear he is having a mild asthma exacerbation. No prior bipap or inbutation. has been out of his medications. Received a DuoNeb and 3 albuterol treatments as continuous. Also prednisone. Patient reassessed twice afterwards and improving each time with improved aeration on auscultation. Remains stable, not hypoxic. Discharged home in stable condition with Rx for short course of steroids as well as refill of Albuterol PRN and Symbicort. Advised follow up and strict ED return precautions. Discharge Plan Discharge Clinical Impression: Asthma exacerbation, Encounter for medication refill Patient Disposition: Home, Self-Care Condition: Stable Instructions: Antibiotic Form, Asthma (DC) Additional I
[2024-01-24] MEDS: ALBUTEROL SULFATE NEB 2.5 MG/3 ML INH 10 MG INHALATION (06:22)
[2024-01-24] MEDS: predniSONE 20 MG TABLET 60 MG PO (06:30)
== END 2024-01-24 07:35 | disposition home or self-care (01) ==
PROVIDERS: Emergency Provider Student in an Organized Health Care Education/Training Program
DX: J45.901 Unspecified asthma with (acute) exacerbation (principal); Z76.0 Encounter for issue of repeat prescription; F41.9 Anxiety disorder, unspecified
CPT/HCPCS: 71045; 94640; 99283; J7512

== ENCOUNTER 2024-06-22 16:13 | Emergency (ER) | payer SELFPAY ==
[2024-06-22] VITALS (10 sets, daily range): BP systolic 123–139; BP diastolic 76–121; PULSE 109–127; RESP 18–29; TEMP 37.3; O2SAT 91–98
--- NOTE | ~2024-06-22 | XR_ITS ---
EXAMINATION: XR chest 2V DATE: 06/22/2024 16:53 INDICATION: Cough and fever. Upper respiratory infection. TECHNIQUE: Frontal and lateral views of the chest were obtained. COMPARISON: Chest view 01/24/2024, chest CT 05/11/2022 FINDINGS: There is no pneumonia, pleural effusion, or pneumothorax. The heart size is normal. IMPRESSION: 1. No acute cardiopulmonary disease. Reviewed, dictated and finalized at location B. [employer]
[2024-06-22] MEDS: IBUPROFEN 400 MG TABLET 800 MG PO (16:40)
--- NOTE | 2024-06-22 16:53 | ED_ITS ---
HPI - General Adult General Chief complaint: Upper Respiratory Infection Stated complaint: Shortness of breath, cough, fever/chills Time Seen by Provider: 06/22/24 16:24 History of Present Illness HPI narrative: Patient is a 28-year-old gentleman who presents emergency department with chief complaint of cough chills fever and shortness of breath. The patient reports he had symptoms started yesterday reports that he has prior history of asthma reports that he started having cough with shortness of breath body aches and fever. Related Data Home Medications ?Medication ?Instructions ?Recorded ?Confirmed ?Last Taken ?Type budesonide-formoterol HFA 80 2 puff inhalation Q12H 12/05/19 05/10/20 Unknown History mcg-4.5 mcg/actuation aerosol inhaler (Symbicort) Allergies Allergy/AdvReac Type Severity Reaction Status Date / Time cephalexin (From Keflex) Allergy Intermediate Hives Verified 06/22/24 16:20 buspirone Allergy Unknown Seizure Verified 06/22/24 16:20 Review of Systems Review of Systems: A 10 system review of systems was completed on the patient and is negative except for what is stated in the HPI. Nursing and ancillary documentation was reviewed. PMFSH Past Medical History Medical History Anxiety Patient denies significant medical history Xanax use disorder, mild, abuse Asthma Surgical History Surgical History No pertinent past surgical history No significant past surgical history Social History Social History Smoking status: Never smoker Tobacco type: e-cigarettes/vaping Alcohol intake: current Drinks per week: 3 Alcohol use details: consumes 3 beers rarely Substance use: current Substance use type: marijuana Other substance usage details: reducing smoking, continues edibles Gender identity (if verbalized by the patient): Male Exam Narrative: GENERAL: Well-appearing, well-nourished, and in no acute distress. HEAD: Normocephalic, atraumatic. EYES: PERRLA and EOMI. ENT: Nares clear, no rhinorrhea or epistaxis. Mucous membranes moist. NECK: Supple. CHEST: Clear to auscultation. No respiratory distress. HEART: Tachycardic rate and regular rhythm. No murmur heard. Normal peripheral pulses. ABDOMEN: Soft, nontender, nondistended, normal active bowel sounds. EXTREMITIES: Normal range of motion. No edema. SKIN: Warm, dry, no rash. NEURO: No focal deficits. Alert and oriented x3. PSYCH: Normal mood and affect. Course Vital Signs Vital signs: Vital Signs Temperature 37.3 C 06/22/24 16:20 Pulse Rate 127 H 06/22/24 16:20 Respiratory Rate 24 H 06/22/24 16:20 Blood Pressure 129/89 06/22/24 16:20 Pulse Oximetry 92 06/22/24 16:20 Oxygen Delivery Room Air 06/22/24 16:20 Temperature 37.3 C 06/22/24 16:20 Pulse Rate 109 H 06/22/24 17:12 Respiratory Rate 20 06/22/24 17:12 Blood Pressure 123/76 06/22/24 16:31 Pulse Oximetry 91 06/22/24 16:31 Oxygen Delivery Room Air 06/22/24 16:27 Medical Decision Making [facility] Narrative Medical decision making narrative: Differential diagnosis includes pneumonia, upper respiratory infection, COVID flu, RSV The patient was positive for influenza A Chest x-ray showed no focal infiltrate Vital Signs Vital Signs: Vital Signs Temperature 37.3 C 06/22/24 16:20 Pulse Rate 127 H 06/22/24 16:20 Respiratory Rate 24 H 06/22/24 16:20 Blood Pressure 129/89 06/22/24 16:20 Pulse Oximetry 92 06/22/24 16:20 Oxygen Delivery Room Air 06/22/24 16:20 Temperature 37.3 C 06/22/24 16:20 Pulse Rate 109 H 06/22/24 17:12 Respiratory Rate 20 06/22/24 17:12 Blood Pressure 123/76 06/22/24 16:31 Pulse Oximetry 91 06/22/24 16:31 Oxygen Delivery Room Air 06/22/24 16:27 Lab Data Labs: Lab Results 06/22/24 Range/Units 16:31 Influenza A (RT-PCR) Positive A (Negative) Influenza B (RT-PCR) Negative (Negative) RSV (RT-PCR) Negative (Negative) SARS-CoV-2 RNA (RT-PCR) Negative (Negative) Discharge Plan Discharge Clinical Impression: Influenza Patient Disposition: Home, Self-Care Condition: Stable Instructions: Antibiotic Form, Influenza (ED) Patient Language: Italian Prescriptions: New albuterol sulfate 90 mcg/actuation HFA aerosol inhaler 2 puff inhalation QID PRN (Reason: shortness of breath or wheezing) Qty: 8.5 0RF oseltamivir [Tamiflu] 75 mg capsule 75 mg PO Q12H 5 Days Qty: 10 0RF ondansetron 4 mg tablet,disintegrating 4 mg PO Q8H PRN (Reason: nausea and vomiting) Qty: 10 0RF benzonatate 200 mg capsule 200 mg PO TID PRN (Reason: cough) Qty: 21 0RF No Action clindamycin HCl [Cleocin HCl] 300 mg capsule 300 mg PO Q8H 7 Days Qty: 21 0RF albuterol sulfate 90 mcg/actuation aero powdr breath act w/sensor 1 inh INHALATION Q4-6H PRN (Reason: shortness of breath or wheezing) Qty: 1 0RF prednisone 20 mg tablet 40 mg PO DAILY 5 Days Qty: 10 0RF budesonide-formoterol [Symbicort] 80-4.5 mcg/actuation HFA aerosol inhaler 2 puff inhalation Q12H Qty: 10.2 0RF albuterol sulfate 90 mcg/actuation HFA aerosol inhaler 2 puff inhalation QID PRN (Reason: shortness of breath or wheezing) Qty: 8.5 0RF azithromycin [Zithromax Z-Rob] 250 mg tablet 250 mg PO DAILY 5 Days Qty: 6 0RF benzonatate 200 mg capsule 200 mg PO TID Qty: 30 0RF budesonide-formoterol [Symbicort] 80-4.5 mcg/actuation Hfa Aerosol Inhaler 2 puff INHALATION Q12H budesonide-formoterol [Symbicort] 80-4.5 mcg/actuation HFA aerosol inhaler 2 puff inhalation Q12H Qty: 10.2 0RF albuterol sulfate 90 mcg/actuation HFA aerosol inhaler 1 inh inhalation QID PRN (Reason: shortness of breath or wheezing) Qty: 6.7 0RF budesonide-formoterol [Breyna] 80-4.5 mcg/actuation HFA aerosol inhaler 1 inh inhalation QHS Qty: 10.2 0RF prednisone 20 mg tablet 40 mg PO DAILY 4 Days Qty: 8 0RF Rx Instructions: to begin 01/25/24 (received first dose in ED 01/23/24); take before 9am daily Follow-up/Referrals: Lawanda Rooney DO [Physician] - PHYSICIAN,DOMESTIC HOUSEKEEPER [Primary Care Provider] - Time of Disposition: 17:44
[2024-06-22] MEDS: IPRATROPIUM 0.5 MG/ALBUTEROL SULFATE 2.5 MG AMPUL.NEB 3 ML INHALATION (17:05)
[2024-06-22 17:11] LABS: Influenza A QL RT-PCR Positive (Negative); Influenza B QL RT-PCR Negative (Negative); RSV RNA, RT-PCR Negative (Negative); SARS-CoV-2 RNA PCR Negative (Negative)
[2024-06-22] MEDS: OSELTAMIVIR PHOSPHATE 75 MG CAPSULE PO (17:48)
[2024-06-22] MEDS: predniSONE 20 MG TABLET 60 MG PO (17:48)
--- OUTSIDE RECORDS SUMMARY | 2024-06-24 03:28 | XMS_ITS | Continuity of Care Document ---
Author Organization [facility] Address [email or web address] [address] [place] [address] Phone Care Team Providers Care Tool Dresser Name Role Phone Riley Foster MD Unavailable Unavailable Allergies, Adverse Reactions, Alerts Substance Reaction Status Criticality No Known Allergies Active No Inform ation Medications Medication Instructions Dosage Effective Dates (start - stop) Status Comments Ativan 1 mg tablet take 1 tablet (1MG) by oral route every bedtime as needed 1 MG - Active avoid driving or operate machines Minocin 50 mg capsule take 1 capsule by oral route 2 times every day - Active Procedures Procedure Date OFFICE/OUTPATIENT VISIT, EST OFFICE/OUTPATIENT VISIT, EST PREV VISIT, EST, AGE 18-39 OFFICE/OUTPATIENT VISIT, EST PREV VISIT, EST, AGE 18-39 OFFICE/OUTPATIENT VISIT, [facility] Advance Directives Directive Yes / No Effective Date File Name No Information Encounters Encounter Description Practice Location Reason(s) For Visit Diagnoses Date Provider Providers Copied on Encounter OFFICE/OUTPA TIENT VISIT, EST [facility], [address], [place], [id number], [place] tel:[phone] [facility] Anxiety (chief complaint)le g nodule (chief complaint)he maturia (chief complaint)ac ne (chief complaint) Generalized anxiety disorderLipomaAnx iolytic dependentAcne [address] Lin. [email or web address], [place], [id number] , [place]. tel:[phone] Referring Provider: Shawn Narvaez [address], [place], [place], [id number]. tel:[phone] OFFICE/OUTPA TIENT VISIT, EST [facility], [address], [place], [place], [id number], [place] tel:[phone] [facility] proteinruia (chief complaint)he maturia (chief complaint)in [facility] (chief complaint) ProteinuriaHematu riaInsomnia [address], [place], [place], [id number] , [place]. tel:[phone] Referring Provider: Shawn Narvaez [address], [place], [place], [id number]. tel:[phone] PREV VISIT, EST, AGE 18-39 [facility], [address], [place], [place], [id number], [place] tel:[phone] [facility] PHysicaxl (chief complaint) Routine medical exam 5 Crist[address]. [address], [place], [place], [id number] , [place]. tel:[phone] Referring Provider: Shawn Narvaez [address], [place], [place], [id number]. tel:[phone] OFFICE/OUTPA TIENT VISIT, EST [facility], [address], [place], [place], [id number], [place] tel:[phone] [facility] epilepsy (chief complaint)an xiety (chief complaint)in [facility] (chief complaint) Epilepsy, unspecified, without mention of intractable epilepsyGeneraliz ed anxiety disorderInsomnia, Other Jul- 4 Crist[address] Lin. [address], [place], [place], [id number] , [place]. tel:[phone] Referring Provider: Shawn Narvaez [address], [place], [place], [id number]. tel:[phone] PREV VISIT, EST, AGE 18-39 [facility], [address], [place], [place], [id number], tel:[phone] [facility] PHysical (chief complaint) Routine Medical ExamRoutine Medical Exam 4 Crist[address] Lin. [address] [facility] [address], [place], [place], [id number] , . tel:[phone] Referring Provider: Riley Foster, [address] [facility] [address], [place], [place], [id number]. tel:[phone] OFFICE/OUTPA TIENT VISIT, [facility], [address], [place], [place], [id number], [place] tel:[phone] [facility] seizure (chief complaint)an xiety (chief complaint) Epilepsy, unspecified, without mention of intractable epilepsyGeneraliz ed anxiety disorder 3 Cristian Riley. [address] [facility] [address], [id number] , . tel:[phone] Family History Family Member Type Diagnosis Age At Onset Sister Problem (finding) Alive and well Mother Problem (finding) crohn disease Father Problem (finding) Alive and well Payers Payer name Insurance type Covered democrat ID Authoriza tion(s) No Information Social History Type Description Quantity Date Captured Comments Alcohol Use Details No Caffeine Use Details Unknown Tobacco Use Status Non-smoker Smoking Status Former smoker Sex Male Vital Signs Date / Time: Height Weight BMI Pulse Rate Blood Pressure Temperature Respiratory Rate Body Surface Area Head Circumference BMI percentile Pulse Ox Inhaled Ox 2:14 PM 172.72 cm 143.00 lbs 21.7 4 kg/m eter (2) 85 /min 126/79 mm[Hg] 97.2 F 18 /min Chief Complaint And Reason For Visit From encounter dated '02/12/2015 13:15'. Anxiety (chief complaint). Description: Additional information: Pt has chronic aniety. Pt denies any depression or any suicidal thought. Pt takes ativan and doing ok. leg nodule (chief complaint). Description: Pt notices intermittent nodule around both lower leg forseveral months. Pt denies any pain. Pt denies any recent travel or bedrest. Pt denies any calf pain. hematuria (chief complaint). Description: Pt has mild hematuria and also proteinuria. Pt has not done ultrasound or repeat UA yet. Pt denies any UTI symptoms acne (chief complaint). Description: Additional information: Pt notices acne on forehead around chin area. Pt failed OTC meds. Plan Of Treatment Date Type Action Status Goal Depression screening. Due on due Goal HPV (1st). Due on due Goal Tdap. Due on due Goal Td vaccine. Due on due Goal Depression screening. Due on due Goal HPV (1st). Due on due Goal Tdap. Due on due Goal Td vaccine. Due on due Goal Depression screening. Due on due Goal HPV (1st). Due on due Goal Td vaccine. Due on due Goal Tdap. Due on due Goal Tobacco cessation counseling completed Referral Ordered: [facility] ordered Referral Ordered: Referral: Neurology. Evaluate and treat. ordered History Of Present Illness Encounter Date Complaint History Of Prese nt Illness Anxiety Additional infor mation: Pt has chronic aniety. Pt denies any depression or any suicidal thought. Pt takes ativan and doing ok. leg nodule Pt notices inter mittent nodule around both lower leg for several months. Pt denies any pain. Pt denies any recent travel or bedrest. Pt denies any calf pain. hematuria Pt has mild dana turia and also proteinuria. Pt has not done ultrasound or repeat UA yet. Pt denies any UTI symptoms acne Additional infor mation: Pt notices acne on forehead around chin area. Pt failed OTC meds. proteinruia Pt has mild prot einuria on urine. Pt denies any UTI symptoms hematuria Pt denies any UT I symptoms. Pt denies any visible blood in urine. Pt denies any flank or back pain or fever, chill insomnia The patient pres ents for insomnia. Relevant history: a BMI of 21.13. The patient does not have: use of alcohol. Additional information: Pt takes ativan for insomnia and anxiety and working ok. Pt denies any depression or any suicidal thought. PHysicaxl Pt needs annual physical. Pt has chrnoic anxiety. Pt denies any depression or any suicidal thought. Pt used to take ativan which works great. Pt denies any more alcohol consumption. Pt lost his insurance and just got it back recently. Pt was bite by some bug last week. Pt denies any pain. Pt notices mild itching. Pt denies any joint pain. Pt denies any headache. Pt denies any fever, chill Pt denies any recent travel. Pt did not like zoloft and he stopped it. Instructions Date Instruction Additional Infor mation No Information Assessments Type Assessment Date assessment Generalized anxiety disorder Jan assessment Lipoma assessment Anxiolytic dependent assessment Acne
== END 2024-06-22 18:12 | disposition home or self-care (01) ==
LOC: ANHED 17:52
PROVIDERS: Physician Assistant; Emergency Provider Emergency Medicine
DX: J10.1 Influenza due to other identified influenza virus with other respiratory manifestations (principal); Z20.822 Contact with and (suspected) exposure to COVID-19; J45.909 Unspecified asthma, uncomplicated
CPT/HCPCS: 71046; 87637; 94640; 99283; A9270; J7512

== ENCOUNTER 2025-03-16 14:21 | Emergency (ER) | payer SELFPAY ==
--- NOTE | 2025-03-16 15:12 | PC.NURSE ---
pt called 2x for triage no response
--- OUTSIDE RECORDS SUMMARY | 2025-03-16 16:28 | XMS_ITS | Clinical Summary ---
Author Organization [facility] Address [facility] [place] [address] Care Team Providers Care Profile Grinder Name Role Phone None, Provider MD Primary Care Provider Unavaila ble Allergies Active Allergy Reactions Criticality Noted Date Comments Buspirone Unknown 10/04/2024 Cephalexin Unknown 10/04/2024 Medications ondansetron (ZOFRAN-ODT) 4 MG disintegrating tablet Take 1 tablet (4 mg total) by mouth every 8 (eight) hours as needed. 20 tablet Active Social History Tobacco Use Types Packs/Day Years Used Date Smoking Tobacco: Never Smokeless Tobacco: Never Tobacco Cessation:Counseling Given: Not Answered Sex and Gender Information Value Date Recorded Sex Assigned at Male 10/04/2024 9:41 AM CDT Legal Sex Male 6:41 PM CDT Gender Identity Not on file Sexual Orientation Not on file Last Filed Vital Signs Vital Sign Reading Time Taken Comments Blood Pressure 123/78 10/04/2024 10:41 AM CDT Pulse 64 10/04/2024 10:41 AM CDT Temperature 36.9 C (98.4 F) 10/04/2024 10:41 AM CDT Respiratory Rate 22 10/04/2024 10:41 AM CDT Oxygen Saturation 100% 10/04/2024 10:41 AM CDT Inhaled Oxygen Concentration - - Weight 80 kg (176 lb 5.9 oz) 10/04/2024 9:07 AM CDT Height 175.3 cm (5' 9) 10/04/2024 9:07 AM CDT Body Mass Index 26.05 10/04/2024 9:07 AM CDT Plan of Treatment Health Maintenance Due Date Last Done Comments Annual Physical 1997 Hepatitis C 2012 DTaP, Tdap and Td Vaccines (4 - Td or Tdap) 01/01/2019 01/01/2009, 12/26/1998, 01/07/1996, Additional history exists HPV Vaccines (1 - 3-dose SCDM series) 2021 COVID-19 Vaccine ( season) 2025 Influenza Adult (#1) 2025 Hepatitis B Vaccines Completed 08/04/1995, 02/13/1995, 1994 Meningococcal Vaccine Aged Out 01/01/2009 No brittany juvenal eligible based on patient's age to complete this topic Meningococcal B Vaccine Aged Out No l onger eligible based on patient's age to complete this topic Pneumococcal Vaccine: Pediatrics (0 to 5 Years) and At-Risk Patients (6 to 49 Years) Aged Out No longer eligible based on patient's age to complete this topic RSV Immunizations Under 20 Months Aged Out No longer eligible based on patient's age to complete this topic Care Teams Profile Grinder Relationship Specialty Start Date End Date None, Provider, MD PCP - General UNKNOWN PHYSICIAN SPECIALTY 10/04/24
--- OUTSIDE RECORDS SUMMARY | 2025-03-16 16:28 | XMS_ITS | Encounter Summary ---
Author Organization [facility] Address [facility] [place] [address] Care Team Providers Care Parts Facilitator Name Role Phone None, Provider Primary Care Provider Unavaila ble Encounter Details Date Type Department Care Team (Late st Contact Info) Description 11/06/2018 Abstract SFL CONVERSION [address] [place] [address] , Generic Conversion, Social History Tobacco Use Types Packs/Day Years Used Date Smoking Tobacco: Never Assessed Sex and Gender Information Value Date Recorded Sex Assigned at Male 10/04/2024 9:41 AM CDT Legal Sex Male 6:41 PM CDT Gender Identity Not on file Sexual Orientation Not on file documented as of this encounter Plan of Treatment Not on file documented as of this encounter Visit Diagnoses Not on filedocumented in this encounter Care Teams Parts Facilitator Relationship Specialty Start Date End Date None, Provider, PCP - General UNKNOWN PHYSICIAN SPECIALTY 10/04/24 documented as of this encounter
--- OUTSIDE RECORDS SUMMARY | 2025-03-16 17:23 | XMS_ITS | Encounter Summary ---
Author Organization [facility] Address [facility] [place] [address] Care Team Providers Care Lead Enterprise Architect Name Role Phone None, Provider Primary Care Provider Unavaila ble Encounter Details Date Type Department Care Team (Late st Contact Info) Description 11/06/2018 Abstract SFL CONVERSION [address] [place] [address] , Generic Conversion, Social History Tobacco Use [...] on filedocumented in this encounter Care Teams Lead Enterprise Architect Relationship Specialty Start Date End Date None, Provider, PCP - General UNKNOWN PHYSICIAN SPECIALTY 10/04/24 documented as of this encounter
--- OUTSIDE RECORDS SUMMARY | 2025-03-16 17:23 | XMS_ITS | Clinical Summary ---
Author Organization [facility] Address [facility] [place] [address] Care Team Providers Care It Risk Analyst Name Role Phone None, Provider MD Primary [...] age to complete this topic Care Teams It Risk Analyst Relationship Specialty Start Date End Date None, Provider, MD PCP - General UNKNOWN PHYSICIAN SPECIALTY 10/04/24
== END 2025-03-16 17:01 | disposition left against medical advice (07) ==
LOC: ANHED 15:16
DX: Z53.21 Procedure and treatment not carried out due to patient leaving prior to being seen by health care provider (principal)
CPT/HCPCS: 99199

== ENCOUNTER 2025-03-16 14:59 | Emergency (ER) | payer MEDICAID, SELFPAY ==
[2025-03-16 15:30] VITALS: BP 139/90; PULSE 111; RESP 18; TEMP 36.8; O2SAT 100
[2025-03-16 15:43] LABS: EDCOVIDSCREEN Negative (Negative); EDINFLUASCREEN Negative (Negative); EDINFLUBSCREEN Negative (Negative)
--- NOTE | 2025-03-16 16:02 | ED_ITS ---
HPI - URI/Sore Throat General Chief Complaint: Upper Respiratory Infection Stated Complaint: cold symptoms Time Seen by Provider: 03/16/25 15:50 Source: patient and RN notes reviewed Mode of arrival: ambulatory Limitations: no limitations History of Present Illness HPI Narrative: 29-year-old male presents Express Care complaining of upper respiratory symptoms for approximately 2 days. Patient reports cough, congestion, sore throat, wheezing, body aches. Patient denies any chest pain, difficulty breathing, earache, runny nose, nausea, vomiting, diarrhea, abdominal pain, or any other symptoms. Patient says his daughter was recently was diagnosed with rhino virus and parainfluenza virus. Patient says the has a history of asthma he has ran out of his inhalers and he is feeling wheezy more than normal. Patient has been using [id number] epinephrine inhaler with some relief. Related Data Home Medications ?Medication ?Instructions ?Recorded ?Confirmed ?Last Taken ?Type budesonide-formoterol HFA 80 2 puff inhalation Q12H 05/10/20 Unknown History mcg-4.5 mcg/actuation aerosol inhaler (Symbicort) Allergies Allergy/AdvReac Type Severity Reaction Status Date / Time cephalexin (From Keflex) Allergy Intermediate Hives Verified 03/16/25 15:14 buspirone Allergy Unknown Seizure Verified 03/16/25 15:14 Review of Systems Review of Systems: CONSTITUTIONAL: Denies fever, chills, or sweats. Positive for body aches. EYES: Denies visual changes, redness, or discharge. ENT: Positive for congestion, sore throat. Negative for rhinorrhea or otalgia. CARDIOVASCULAR: Denies chest pain, palpitations, or edema. RESPIRATORY: Positive for cough and wheezing. Negative for dyspnea. GASTROINTESTINAL: Denies abdominal pain, nausea, vomiting, or diarrhea. GENITOURINARY: Denies dysuria or hematuria. SKIN: Denies rash or itching. MUSCULOSKELETAL: Denies back pain, joint pain, or myalgia. NEUROLOGIC: Denies headache, numbness, or weakness. PSYCHIATRIC: Denies anxiety or depression. All other systems reviewed are negative, except as documented in HPI. [facility] Past Medical History Medical History Anxiety Patient denies significant medical history Xanax use disorder, mild, abuse Asthma Surgical History Surgical History No pertinent past surgical history No significant past surgical history Social History Social History Smoking status: Never smoker Tobacco type: e-cigarettes/vaping Alcohol intake: current Drinks per week: 3 Alcohol use details: consumes 3 beers rarely Substance use: current Substance use type: marijuana Other substance usage details: reducing smoking, continues edibles Gender identity (if verbalized by the patient): Male Comments At the time of my signature, I reviewed and agree with the nursing past medical, surgical, social, and family history. There is no relevant family history pertinent to the patient complaint. Exam Narrative: GENERAL: This is a well-nourished, well-developed adult, in no apparent distress. They are non ill-appearing, nontoxic appearing. HEAD: normocephalic, atraumatic. EYES: Sclera clear/white. Vision is grossly intact. Conjunctiva normal bilaterally. Extraocular movements intact. EARS: External ears normal, auditory canals clear and without drainage, TMs without erythema or perforation. Hearing grossly intact. NOSE: External nose normal with no obvious nasal discharge, nasal turbinates erythematous, no rhinorrhea. THROAT: Mucous membranes moist, posterior pharynx erythematous without exudate. Uvula is midline. Postnasal drip present. NECK: Neck supple, non-tender without lymphadenopathy, masses or thyromegaly. CARDIOVASCULAR: Regular rate and rhythm without murmurs, gallops, or rubs. RESPIRATORY: End-expiratory wheezes throughout. Breath sounds equal bilaterally. No rales, or rhonchi. Normal respiratory exam. SKIN: warm, Dry, intact with no suspicious lesions or rash, good texture and turgor. NEURO: awake, alert, and oriented to person, place and time. There were no obvious focal neurologic abnormalities. EXTREMITIES: No joint tenderness, effusion, or edema noted. BACK: Nontender without deformity. Course Course Emergency Course: Portions of this record may have been created with voice recognition software Level of Care: Express Care Visit Vital Signs Vital signs: Vital Signs Temperature 98.2 F 03/16/25 15:30 Pulse Rate 111 H 03/16/25 15:30 Respiratory Rate 18 03/16/25 15:30 Blood Pressure 139/90 03/16/25 15:30 Pulse Oximetry 100 03/16/25 15:30 Oxygen Delivery Room Air 03/16/25 15:30 Temperature 98.2 F 03/16/25 15:30 Pulse Rate 111 H 03/16/25 15:30 Respiratory Rate 18 03/16/25 15:30 Blood Pressure 139/90 03/16/25 15:30 Pulse Oximetry 100 03/16/25 15:30 Oxygen Delivery Room Air 03/16/25 15:30 MDM - URI/Sore Throat MDM Narrative Medical decision making narrative: Patient is in no apparent distress, nontoxic appearing, in no respiratory distress. And expiratory wheezes heard. Likely asthma exacerbation related to upper respiratory infection. Will refill patient's albuterol and Symbicort. Will give patient a course of prednisone for asthma. Rapid COVID, flu, strep were negative. A throat culture is pending. Patient likely has a viral upper respiratory symptoms as well. Discussed physical exam findings. Advised supportive measures and signs/symptoms to go to the ER. Pt is appropriate for outpt treatment and f/u. Differential Diagnosis Differential diagnosis: Likely upper respiratory infection, otitis media, sinusitis, viral infection, pharyngitis and other (Asthma exacerbation) Lab Data Attestation: I reviewed the patient's lab results. Labs: Lab Results 03/16/25 Range/Units 15:22 POC Influenza A Ag Negative (Negative) POC Influenza B Ag Negative (Negative) POC SARS CoV-2 Ag Negative (Negative) Discharge Plan Discharge Clinical Impression: Upper respiratory infection Qualifiers: URI type: unspecified viral URI Qualified Code(s): J06.9 - Acute upper respiratory infection, unspecified Asthma Qualifiers: Asthma severity: mild Asthma persistence: intermittent Asthma complication type: uncomplicated Qualified Code(s): J45.20 - Mild intermittent asthma, uncomplicated Patient Disposition: Home Condition: Stable Instructions: Antibiotic Form, Upper Respiratory Infection (ED) Additional Instructions: Your rapid COVID, flu, rapid strep swab was negative today at [facility]. You will be notified in a few days if the culture comes back positive for strep, and appropriate antibiotics will be called in for you at that time. Your symptoms are likely due to a viral illness, which is not treated with antibiotics. Viral symptoms can be present for up to 5-10 days. Take prednisone as directed. I refilled your inhalers for your asthma. Use the spacer with your inhalers. Take Tylenol ibuprofen as needed for fever or pain. Follow the instructions on the bottle. Rest and stay hydrated. Follow up with your PCP in 5-7 days if symptoms are not improving. Go to the ER immediately if you developed chest pain, nausea vomiting, fevers, difficulty breathing or swallowing, or any serious concerns. Patient Language: Slovak Prescriptions: New albuterol sulfate [Ventolin HFA] 90 mcg/actuation HFA aerosol inhaler 2 puff inhalation QID PRN (Reason: shortness of breath or wheezing) Qty: 8.5 0RF budesonide-formoterol [Symbicort] 80-4.5 mcg/actuation HFA aerosol inhaler 2 puff inhalation Q12H Qty: 10.2 0RF (DME) Space Chamber Spacer See Rx Instructions .Route Qty: 1 0RF Rx Instructions: As directed prednisone 20 mg tablet 40 mg PO DAILY 5 Days Qty: 10 0RF No Action albuterol sulfate 90 mcg/actuation HFA aerosol inhaler 2 puff inhalation QID PRN (Reason: shortness of breath or wheezing) Qty: 8.5 0RF budesonide-formoterol [Symbicort] 80-4.5 mcg/actuation Hfa Aerosol Inhaler 2 puff INHALATION Q12H Follow-up/Referrals: PHYSICIAN,MEDICAL OR SURGICAL INSTRUMENT MAKER [Primary Care Provider, Internal Medicine] Stand Alone Forms: Work/School Release IP Time of Disposition: 16:02
[2025-03-16 16:17] LABS: EDSTREPNEGPOS1 Negative (Negative)
== END 2025-03-16 16:20 | disposition home or self-care (01) ==
DX: J06.9 Acute upper respiratory infection, unspecified (principal); J45.20 Mild intermittent asthma, uncomplicated; Z20.822 Contact with and (suspected) exposure to COVID-19
CPT/HCPCS: 87081; 87426; 87804; 87880; 99213; G0463

== ENCOUNTER 2025-03-27 16:42 | Emergency (ER) | payer MEDICAID, SELFPAY ==
--- NOTE | ~2025-03-27 | XR_ITS ---
EXAMINATION: XR chest 2V DATE: 03/27/2025 18:21 INDICATION: Cough and congestion TECHNIQUE: PA and lateral views of the chest were obtained. COMPARISON: Chest radiograph dated 06/22/2024 FINDINGS: The lungs remain clear with no focal airspace opacities, pulmonary edema, pleural effusion or pneumothorax. The cardiomediastinal silhouette is normal. Visualized bones and soft tissues are unremarkable. IMPRESSION: 1. Normal chest radiograph. Reviewed, dictated and finalized at location A. IMPRESSION: 1. Normal chest radiograph.
[2025-03-27 16:52] VITALS: BP 151/110; PULSE 118; RESP 20; TEMP 37.2; O2SAT 99
--- OUTSIDE RECORDS SUMMARY | 2025-03-27 17:18 | XMS_ITS | Clinical Summary ---
Author Organization [facility] Address [facility] [place] [address] Care Team Providers Care Landcare Facilitator Name Role Phone None, Provider MD Primary [...] - 3-dose SCDM series) 2021 COVID-19 Vaccine (2024- season) 2025 Influenza Adult (#1) 2025 Hepatitis B Vaccines Completed 08/04/1995, 02/13/1995, 1994 Meningococcal Vaccine Aged Out 01/01/2009 No brittany juvenal eligible based on patient's age to complete this topic Hepatitis A Vaccines Aged Out No long er eligible based on patient's age to complete [...] age to complete this topic Care Teams Landcare Facilitator Relationship Specialty Start Date End Date None, Provider, MD PCP - General UNKNOWN PHYSICIAN SPECIALTY 10/04/24
--- OUTSIDE RECORDS SUMMARY | 2025-03-27 17:18 | XMS_ITS | Encounter Summary ---
Author Organization [facility] Address [facility] [place] [address] Care Team Providers Care Media Relations Director Name Role Phone None, Provider Primary Care Provider Unavaila ble Encounter Details Date Type Department Care Team (Late st Contact Info) Description 11/06/2018 Abstract SFL CONVERSION [address] [place] [address] , Generic Conversion, Social History Tobacco Use [...] on filedocumented in this encounter Care Teams Media Relations Director Relationship Specialty Start Date End Date None, Provider, PCP - General UNKNOWN PHYSICIAN SPECIALTY 10/04/24 documented as of this encounter
--- OUTSIDE RECORDS SUMMARY | 2025-03-27 18:18 | XMS_ITS | Clinical Summary ---
Author Organization [facility] Address [facility] [place] [address] Care Team Providers Care Dean Of Chapel Name Role Phone None, Provider MD Primary [...] age to complete this topic Care Teams Dean Of Chapel Relationship Specialty Start Date End Date None, Provider, MD PCP - General UNKNOWN PHYSICIAN SPECIALTY 10/04/24
--- OUTSIDE RECORDS SUMMARY | 2025-03-27 18:18 | XMS_ITS | Encounter Summary ---
Author Organization [facility] Address [facility] [place] [address] Care Team Providers Care Individual Pension Consultant Name Role Phone None, Provider Primary Care Provider Unavaila ble Encounter Details Date Type Department Care Team (Late st Contact Info) Description 11/06/2018 Abstract SFL CONVERSION [address] [place] [address] , Generic Conversion, Social History Tobacco Use [...] on filedocumented in this encounter Care Teams Individual Pension Consultant Relationship Specialty Start Date End Date None, Provider, PCP - General UNKNOWN PHYSICIAN SPECIALTY 10/04/24 documented as of this encounter
--- NOTE | 2025-03-27 18:24 | ED.URI ---
HPI - URI/Sore Throat General Chief Complaint: Upper Respiratory Infection Stated Complaint: FLU LIKE SYMPTOMS DAUGHTER PARAINFLUENZA + Time Seen by Provider: 03/27/25 18:00 History of Present Illness HPI Narrative: Patient is a 29-year-old male who presents to the ER after feeling sickly since March 16, 2025. He reports he went urgent care approximately 1 week ago and his respiratory swabs and strep were negative. Patient reports he has continued to have intermittent fevers, red throat, and productive cough. He reports he has been taking Tylenol for pain and fever control. Patient reports when he went to urgent care they sent him home on prednisone which has helped a lot but now his symptoms have returned. He endorses a history of asthma. Related Data Home Medications ?Medication ?Instructions ?Recorded ?Confirmed ?Last Taken ?Type budesonide-formoterol HFA 80 2 puff inhalation Q12H 12/05/19 05/10/20 Unknown History mcg-4.5 mcg/actuation aerosol inhaler (Symbicort) Allergies Allergy/AdvReac Type Severity Reaction Status Date / Time cephalexin (From Keflex) Allergy Intermediate Hives Verified 03/27/25 18:01 buspirone Allergy Unknown Seizure Verified 03/27/25 18:01 Review of Systems Review of Systems: All systems reviewed & are unremarkable except as noted in HPI and below PMFSH Past Medical History Medical History Anxiety Patient denies significant medical history Xanax use disorder, mild, abuse Asthma Surgical History Surgical History No pertinent past surgical history No significant past surgical history Social History Social History Smoking status: Never smoker Tobacco type: e-cigarettes/vaping Alcohol intake: current Drinks per week: 3 Alcohol use details: consumes 3 beers rarely Substance use: current Substance use type: marijuana Other substance usage details: reducing smoking, continues edibles Gender identity (if verbalized by the patient): Male Exam Narrative: GENERAL: Ill appearing, well-nourished, non-toxic, in no acute distress. HEAD: Normocephalic, atraumatic. NECK: Supple. No adenopathy, no masses. RESPIRATORY: Positive wheezing, positive rhonchi, mildly labored respirations CARDIOVASCULAR: Tachycardia, regular rhythm without murmurs, rubs, or gallops. Peripheral pulses 2+ and equal bilaterally. ABDOMINAL: Soft, nontender, nondistended, no hepatosplenomegaly. Normoactive BS. MUSCULOSKELETAL: Moves all extremities. Strength/ROM intact without gross deformities. SKIN: Warm, dry, normal color. No rashes. NEURO: A&O X3. Speech clear. Cranial nerves II-XII intact. No ataxic movements. PSYCHIATRIC: Appropriate mood and affect. Normal interaction. Course Vital Signs Vital signs: Vital Signs Temperature 37.2 C 03/27/25 16:52 Pulse Rate 118 H 03/27/25 16:52 Respiratory Rate 20 03/27/25 16:52 Blood Pressure 151/110 H 03/27/25 16:52 Pulse Oximetry 99 03/27/25 16:52 Oxygen Delivery Room Air 03/27/25 16:52 Temperature 37.2 C 03/27/25 16:52 Pulse Rate 118 H 03/27/25 16:52 Respiratory Rate 20 03/27/25 16:52 Blood Pressure 151/110 H 03/27/25 16:52 Pulse Oximetry 99 03/27/25 16:52 Oxygen Delivery Room Air 03/27/25 17:59 MDM - URI/Sore Throat MDM Narrative Medical decision making narrative: Patient is a 29-year-old male who presents to the ER after feeling sickly since March 16, 2025. He reports he went urgent care approximately 1 week ago and his respiratory swabs and strep were negative. Patient reports he has continued to have intermittent fevers, red throat, and productive cough. He reports he has been taking Tylenol for pain and fever control. Patient reports when he went to urgent care they sent him home on prednisone which has helped a lot but now his symptoms have returned. He endorses a history of asthma. Labs Ordered: COVID/flu/RSV swab, strep swab Imaging Ordered: Chest x-ray Medications Ordered: 1 L normal saline IV bolus, Toradol 15 mg IV, Solu-Medrol 2024 IV, Tylenol 1 g PO Results: Patient's swab was positive for strep. Patient's chest x-ray was unremarkable for any acute abnormalities Diagnosis: Strep throat, asthma exacerbation Patient Education/Shared MDM: Results of lab work and imaging shared with patient. He endorses improvement of symptoms following medication administration. Patient strongly advised to maintain hydration status upon discharge and follow-up with his PCP in the next 2-3 days. He will be discharged home with a prescription for amoxicillin, prednisone and inhaler. Strict return precautions provided. Patient verbalized understanding and is in agreement with plan. Vital signs stable at time of discharge. All questions answered. Differential Diagnosis Differential diagnosis: Likely upper respiratory infection, viral infection, bronchitis, influenza and other (Pneumonia, strep) Lab Data Attestation: I reviewed the patient's lab results. Labs: Lab Results 03/27/25 Range/Units 18:27 Influenza A (RT-PCR) Negative (Negative) Influenza B (RT-PCR) Negative (Negative) RSV (RT-PCR) Negative (Negative) SARS-CoV-2 RNA (RT-PCR) Negative (Negative) Group A Strep (PCR) Detected A (Negative) Imaging Data Attestation: I personally reviewed and interpreted this imaging study as follows: Radiologist's impression: Impressions Chest X-Ray 03/27/25 18:21 IMPRESSION: 1. Normal chest radiograph. Discharge Plan Discharge Clinical Impression: Strep pharyngitis Asthma exacerbation Qualifiers: Asthma severity: mild Asthma persistence: unspecified Qualified Code(s): J45.901 - Unspecified asthma with (acute) exacerbation Patient Disposition: Home Condition: Stable Instructions: Antibiotic Form Patient Language: Indonesian Prescriptions: No Action albuterol sulfate [Ventolin HFA] 90 mcg/actuation HFA aerosol inhaler 2 puff inhalation QID PRN (Reason: shortness of breath or wheezing) Qty: 8.5 0RF budesonide-formoterol [Symbicort] 80-4.5 mcg/actuation HFA aerosol inhaler 2 puff inhalation Q12H Qty: 10.2 0RF (DME) Space Chamber Spacer See Rx Instructions .Route Qty: 1 0RF Rx Instructions: As directed prednisone 20 mg tablet 40 mg PO DAILY 5 Days Qty: 10 0RF albuterol sulfate 90 mcg/actuation HFA aerosol inhaler 2 puff inhalation QID PRN (Reason: shortness of breath or wheezing) Qty: 8.5 0RF budesonide-formoterol [Symbicort] 80-4.5 mcg/actuation Hfa Aerosol Inhaler 2 puff INHALATION Q12H Follow-up/Referrals: PHYSICIAN,EXPERIMENTAL WORKER [Primary Care Provider, Internal Medicine]
[2025-03-27] MEDS: ACETAMINOPHEN 500 MG TABLET 1000 MG PO (18:36)
[2025-03-27] MEDS: KETOROLAC 15 MG/ML VIAL (*BKC) IV PUSH (18:36)
[2025-03-27] MEDS: SODIUM CHLORIDE 0.9% IV 1,000 ML 999 ML IV CONT (18:36)
[2025-03-27 18:56] LABS: Strep Group A RT-PCR DETECTED (Negative)
[2025-03-27 19:08] LABS: Influenza A QL RT-PCR Negative (Negative); Influenza B QL RT-PCR Negative (Negative); RSV RNA, RT-PCR Negative (Negative); SARS-CoV-2 RNA PCR Negative (Negative)
[2025-03-27] MEDS: AMOXICILLIN 500 MG CAPSULE PO (19:43)
== END 2025-03-27 19:46 | disposition home or self-care (01) ==
PROVIDERS: Emergency Provider Registered Nurse
DX: J02.0 Streptococcal pharyngitis (principal); J45.901 Unspecified asthma with (acute) exacerbation; Z20.822 Contact with and (suspected) exposure to COVID-19
CPT/HCPCS: 71046; 87637; 87651; 96361; 96374; 96375; 99284; A9270; J1885; J2919; J7030